=== PATIENT | male | born 1950 | race Caucasian/White ===

== ENCOUNTER → 2023-09-03 | Outpatient (CLI) | payer OTHER, SELFPAY ==
[2023-09-03 12:16] LABS: Absolute Lymphocyte Count 0.62 X10^3/uL (0.83-4.51); Basophil# 0.04 X10^3/uL; Basophil% 0.8 % (0-1); Eosinophils% 1.9 % (0-5); Hematocrit 46.2 % (40-54); Hemoglobin 14.2 g/dL (13.0-16.5); Lymphocyte # 0.62 X10^3/ul (0.83-4.51); Mean Corp Hgb Conc 30.7 g/dL (32-36); Mean Corpuscular Hgb 28.2 pg (27.0-32.0); Mean Corpuscular Volume 91.8 fL (80-94); Mean Platelet Vol. 9.8 fl (6.2-12.0); Monocyte# 0.45 X10^3/uL; Monocyte% 8.7 % (0-10); NRBC Flagged by Analyzer 0 % (0-5); Neutrophil # 3.95 X10^3/uL (2.7-7.7); Neutrophil % 76.4 % (47-70); Platelet Count 219 K/mm3 (150-450); RBC Distribution Width CV 13.3 % (11.6-14.6); RBC Distribution Width SD 44.9 fl (35.1-43.9); Red Blood Count 5.03 M/mm3 (4.6-6.2); White Blood Count 5.2 K/mm3 (4.4-11.0)
[2023-09-03 12:35] LABS: Bacteria 0 SEEN /hpf (None Seen); Mucous, Urine 0 SEEN /hpf (<or=2+); Red Blood Cells-Urine 0 SEEN /hpf (0-5); Squamous Epithelial Cells - UA 0 SEEN /hpf (0-5); White Blood Cells 0 SEEN /hpf (0-5)
[2023-09-03 12:40] LABS: AST(SGOT) 18 U/L (15-37); Alanine Aminotransfer ALT/SGPT 37 U/L (16-61); Albumin, Serum 3.6 g/dL (3.2-5.0); Alkaline Phosphatase 66 U/L (45-117); Anion Gap 6 (5-15); BUN 19 mg/dL (7-18); BUN/Creat Ratio 22.2 RATIO (10-20); CPK Total, Creatine Kinase 68 U/L (39-308); Calcium,Total 9.4 mg/dL (8.5-10.1); Chloride 103 mmol/L (98-107); Cholesterol 115 mg/dL (200); Creatinine, Serum 0.85 mg/dL (0.70-1.30); EST Glomerular Filtration Rate 94 mL/min (>60); Est Glom Filt Rate - Afr Amer 113 mL/min (>60); Ferritin 12 ng/mL (26-388); Globulin 3.7 g/dL (2.2-4.2); Glucose 136 mg/dL (74-106); High Density Lipoprotein 52 mg/dL; Magnesium 1.9 mg/dL (1.6-2.6); PSA,Total- Diagnostic 0.14 ng/mL (0.0-4.0); Potassium 3.7 mmol/L (3.5-5.1); Protein, Total 7.3 g/dL (6.4-8.2); Sodium Level 137 mmol/L (136-145); Triglycerides 155 mg/dL; Very Low Density Lipoprotein 31 mg/dL (5-40)
[2023-09-03 13:32] LABS: Hemoglobin A1c 6.7 % (3.8-5.6)
[2023-09-03 15:35] LABS: Color, Urine Yellow (Yellow); Glucose, Dipstick 1000 mg/dl (Normal); Ketone-Dipstick Negative (Negative); Leukocyte Esterase-Dipstick Negative /ul (Negative); Nitrite-Dipstick Negative (Negative); Occult Blood-Urine Negative /ul (Negative); Protein-Dipstick Negative (Negative); Urine Bilirubin Dipstick Negative (Negative); Urine Clarity Clear (Clear); Urine Urobilinogen Normal (Normal)
[2023-09-03 16:08] LABS: Microalbumin,Random Urine < 5.0 mg/L (NO RANGE EST.)
[2023-09-04 11:58] LABS: Iron 68 ug/dL (65-175); Iron Binding Capacity,Total 344 ug/dL (250-450); PERCENT IRON SATURATION 19.8 % (15.0-55.0)
== END | disposition home or self-care (01) ==
LOC: MFPLAB 10:28
PROVIDERS: PCP Family Medicine; Visit Provider Family Medicine
DX: R79.0 Abnormal level of blood mineral (principal); C61 Malignant neoplasm of prostate; E11.8 Type 2 diabetes mellitus with unspecified complications; M79.10 Myalgia, unspecified site
CPT/HCPCS: 36415; 80053; 80061; 81001; 82043; 82550; 82570; 82728; 83036; 83540; 83550; 83735; 84153; 85025

== ENCOUNTER → 2023-10-17 | Outpatient (CLI) | payer MEDICARE, SELFPAY ==
[2023-10-17 18:28] LABS: Ferritin 23 ng/mL (26-388)
== END | disposition home or self-care (01) ==
PROVIDERS: PCP Family Medicine; Visit Provider Family Medicine
DX: R79.0 Abnormal level of blood mineral (principal)
CPT/HCPCS: 36415; 82728

== ENCOUNTER → 2024-02-25 | Outpatient (CLI) | payer MEDICARE, SELFPAY ==
[2024-02-25 15:04] LABS: Absolute Lymphocyte Count 1.35 X10^3/uL (0.83-4.51); Absolute Neutrophil Count 4.5 X10^3/uL (2.0-7.7); Basophil# 0.05 X10^3/uL; Basophil% 0.7 % (0-1); Eosinophils% 1.5 % (0-5); Hematocrit 44.6 % (40-54); Hemoglobin 14.6 g/dL (13.0-16.5); Lymphocyte # 1.35 X10^3/ul (0.83-4.51); Lymphocyte % 20.2 % (19-41); Mean Corp Hgb Conc 32.7 g/dL (32-36); Mean Corpuscular Hgb 28.8 pg (27.0-32.0); Mean Platelet Vol. 10.4 fl (6.2-12.0); Monocyte# 0.66 X10^3/uL; Monocyte% 9.9 % (0-10); NRBC Flagged by Analyzer 0 % (0-5); Neutrophil # 4.49 X10^3/uL (2.7-7.7); Neutrophil % 67.4 % (47-70); Platelet Count 235 K/mm3 (150-450); RBC Distribution Width CV 13.6 % (11.6-14.6); RBC Distribution Width SD 43.4 fl (35.1-43.9); Red Blood Count 5.07 M/mm3 (4.6-6.2); White Blood Count 6.7 K/mm3 (4.4-11.0)
[2024-02-25 15:35] LABS: ALB/GLOB Ratio 0.9 RATIO (0.9-2.4); AST(SGOT) 14 U/L (15-37); Alanine Aminotransfer ALT/SGPT 30 U/L (16-61); Albumin, Serum 3.7 g/dL (3.2-5.0); Alkaline Phosphatase 85 U/L (45-117); Anion Gap 7 (5-15); BUN 24 mg/dL (7-18); BUN/Creat Ratio 24.5 RATIO (10-20); Calcium,Total 10.1 mg/dL (8.5-10.1); Chloride 102 mmol/L (98-107); Cholesterol 138 mg/dL (200); Creatinine, Serum 0.98 mg/dL (0.70-1.30); EST Glomerular Filtration Rate 80 mL/min (>60); Est Glom Filt Rate - Afr Amer 97 mL/min (>60); Ferritin 11 ng/mL (26-388); Globulin 4.2 g/dL (2.2-4.2); Glucose 142 mg/dL (74-106); High Density Lipoprotein 49 mg/dL; Iron 48 ug/dL (65-175); Iron Binding Capacity,Total 389 ug/dL (250-450); Potassium 4.3 mmol/L (3.5-5.1); Protein, Total 7.9 g/dL (6.4-8.2); Sodium Level 137 mmol/L (136-145); Triglycerides 183 mg/dL; Very Low Density Lipoprotein 37 mg/dL (5-40)
[2024-02-25 16:56] LABS: Hemoglobin A1c 6.8 % (3.8-5.6)
== END | disposition home or self-care (01) ==
LOC: MFPLAB 13:46
PROVIDERS: PCP Family Medicine; Referring Provider Family Medicine; Visit Provider Family Medicine
DX: E11.8 Type 2 diabetes mellitus with unspecified complications (principal); R79.0 Abnormal level of blood mineral
CPT/HCPCS: 36415; 80053; 80061; 82043; 82570; 82728; 83036; 83540; 83550; 85025

== ENCOUNTER → 2024-04-06 | Outpatient (CLI) | payer MEDICARE, SELFPAY ==
[2024-04-06 16:27] LABS: PSA,Total- Diagnostic 0.14 ng/mL (0.0-4.0)
== END | disposition home or self-care (01) ==
LOC: MFPLAB 12:18
PROVIDERS: PCP Family Medicine; Visit Provider Urology
DX: C61 Malignant neoplasm of prostate (principal)
CPT/HCPCS: 36415; 84153

== ENCOUNTER → 2024-06-22 | Outpatient (CLI) | payer MEDICARE, SELFPAY ==
[2024-06-22 12:51] LABS: Absolute Lymphocyte Count 1.21 X10^3/uL (0.83-4.51); Absolute Neutrophil Count 3.4 X10^3/uL (2.0-7.7); Basophil# 0.05 X10^3/uL; Basophil% 0.9 % (0-1); Eosinophil# 0.11 X10^3/uL; Eosinophils% 2.1 % (0-5); Hematocrit 41.4 % (40-54); Hemoglobin 13.1 g/dL (13.0-16.5); Lymphocyte # 1.21 X10^3/ul (0.83-4.51); Lymphocyte % 22.8 % (19-41); Mean Corp Hgb Conc 31.6 g/dL (32-36); Mean Corpuscular Hgb 27.8 pg (27.0-32.0); Mean Corpuscular Volume 87.9 fL (80-94); Monocyte# 0.51 X10^3/uL; Monocyte% 9.6 % (0-10); NRBC Flagged by Analyzer 0 % (0-5); Neutrophil # 3.42 X10^3/uL (2.7-7.7); Neutrophil % 64.4 % (47-70); Platelet Count 254 K/mm3 (150-450); RBC Distribution Width CV 13.9 % (11.6-14.6); RBC Distribution Width SD 44.7 fl (35.1-43.9); Red Blood Count 4.71 M/mm3 (4.6-6.2); White Blood Count 5.3 K/mm3 (4.4-11.0)
[2024-06-22 13:23] LABS: Ferritin 13 ng/mL (37-417); Iron 37 ug/dL (65-175); Iron Binding Capacity,Total 353 ug/dL (250-450); Iron Binding Capacity,Unsat 316 ug/dL (228-428); Vitamin B12 644 pg/mL (180-914)
== END | disposition home or self-care (01) ==
LOC: MFPLAB 11:04
PROVIDERS: PCP Family Medicine; Referring Provider Family Medicine; Visit Provider Family Medicine
DX: D50.9 Iron deficiency anemia, unspecified (principal)
CPT/HCPCS: 36415; 82607; 82728; 83540; 83550; 85025

== ENCOUNTER → 2024-10-05 | Outpatient (CLI) | payer MEDICARE, SELFPAY ==
[2024-10-05 18:20] LABS: Hematocrit 40.9 % (40-54); Hemoglobin 12.6 g/dL (13.0-16.5); Mean Corp Hgb Conc 30.8 g/dL (32-36); Mean Corpuscular Volume 84.7 fL (80-94); Mean Platelet Vol. 10.1 fl (6.2-12.0); Platelet Count 297 K/mm3 (150-450); RBC Distribution Width CV 15.0 % (11.6-14.6); RBC Distribution Width SD 45.9 fl (35.1-43.9); Red Blood Count 4.83 M/mm3 (4.6-6.2); White Blood Count 6.4 K/mm3 (4.4-11.0)
[2024-10-05 19:41] LABS: AST(SGOT) 18 U/L (<=37); Alanine Aminotransfer ALT/SGPT 22 U/L (<=46); Albumin, Serum 4.0 g/dL (3.4-4.8); Alkaline Phosphatase 78 U/L (40-129); Anion Gap 14 (5-15); BUN 22 mg/dL (4-19); BUN/Creat Ratio 24.1 RATIO (10-20); Calcium,Total 9.7 mg/dL (7.6-11.0); Carbon Dioxide 21.5 mmol/L (21.0-32.0); Chloride 101 mmol/L (98-108); Globulin 3.0 g/dL (2.2-4.2); Glucose 162 mg/dL (70-99); Potassium 4.2 mmol/L (3.3-5.1)
--- OUTSIDE RECORDS SUMMARY | 2024-10-05 22:24 | XMS RPT_ITS | CCD ---
Author Organization [facility] [employer] Care Team Providers [employer] Driver Name Role Phone Carolyn BRODY, Dr. Efraín Bains Primary Care Provider Anthony BRODY, Dr. Kavon Weiss Attending Provider 1( [phone] Carolyn BRODY, Dr. Efraín Bains Attending Provider Carloyn BRODY, Dr. Efraín Bains Referring Provider Efraín Leon Primary Care Unavailable Kavon Cruz Attending Unavailable Efraín Leon Referring Unavailable Efraín Leon Attending Unavailable Efraín Leon Primary Care Unavailable Efraín Leon Attending Unavailable Efraín Leon Primary Care Unavailable Efraín Leon Attending Unavailable Efraín Leon Primary Care Unavailable Efraín Leon Referring Unavailable Efraín Leon Attending Unavailable Efraín Leon Primary Care Unavailable Efraín Leon Primary Care Unavailable Efraín Leon Referring Unavailable Efraín Leon Attending Unavailable Problems Active Problems Problem Classification Problem Date Documented Da te Episodic/Chronic Cancer of prostate (1 source) Malignant neoplasm of prostate; Translations: [Malignant neoplasm of prostate] Onset: 04-21-2024 Chronic Deficiency and other anemia (2 sources) Iron deficiency anemia, unspecified; Translations: [Iron deficiency anemia, unspecified] Onset: 03-01-2024 Episodic Diabetes mellitus with complications (1 source) Type 2 diabetes mellitus with unspecified complications; Translations: [Type 2 diabetes mellitus with unspecified complications] Onset: 03-19-2024 Chronic Past or Other Problems Problem Classification Problem Date Documented Da te Episodic/Chronic Other screening for suspected conditions (not mental disorders or infectious disease) (1 source) Abnormal level of blood mineral; Translations: [Abnormal level of blood mineral] Onset: 10-29-2023 Episodic Results Test Name Value Interpretation Reference Range Facility Absolute lymphocyte countOrd ered By: Efraín Padillaalfred on 06-22-2024 Lymphocytes Auto (Unsp spec) [#/Vol] 1.21 10*3/uL 0.83-4.51 [facility] Absolute neutrophil countOrd ered By: Efraín Padillaalfred on 06-22-2024 Neutrophils (Bld) [#/Vol] 3.4 10*3/uL 2.0-7.7 [facility] Automated lymphocyte count a s percentage of total leukocytesOrdered By: Efraín Leon on 06-22-2024 Lymphocytes/100 WBC Auto (Unsp spec) 22.8 % 19-41 [facility] Basophil percentageOrdered B y: Efraín Leon on 06-22-2024 Basophils/100 WBC (Bld) 0.9 % 0-1 [facility] CBC W/Diff, Automatedon Absolute Lymph 1.21 X10 3/uL Normal 0.83-4.51 [facility] Comment on above: Performed By: #### L 501.9940, L501.5200, L500.4100, L502.0250, L100.0100, L503.6550, L501.3620, L501.9985, L500.4050 #### [facility] [address] [place], [address] (937) Absolute Neut 3.4 X10 3/uL Normal 2.0-7.7 [facility] Comment on above: Performed By: #### L 501.9940, L501.5200, L500.4100, L502.0250, L100.0100, L503.6550, L501.3620, L501.9985, L500.4050 #### [facility] [address] [place], [place], [id number] (845 Basophils/100 WBC (Bld) 0.9 % Normal 0-1 [facility] Comment on above: Performed By: #### L 501.9940, L501.5200, L500.4100, L502.0250, L100.0100, L503.6550, L501.3620, L501.9985, L500.4050 #### [facility] [address] [place], [address] Eosinophils/100 WBC (Bld) 2.1 % Normal 0-5 [facility] Comment on above: Performed By: #### L 501.9940, L501.5200, L500.4100, L502.0250, L100.0100, L503.6550, L501.3620, L501.9985, L500.4050 #### [facility] [address] [place], [address] Erythrocyte distribution width (RBC) [Ratio] 13.9 % Normal 11.6-14.6 [facility] Comment on above: Performed By: #### L 501.9940, L501.5200, L500.4100, L502.0250, L100.0100, L503.6550, L501.3620, L501.9985, L500.4050 #### [facility] [address] [place], [address] Hematocrit (Bld) [Volume fraction] 41.4 % Normal 40-54 [facility] Comment on above: Performed By: #### L 501.9940, L501.5200, L500.4100, L502.0250, L100.0100, L503.6550, L501.3620, L501.9985, L500.4050 #### [facility] [address] [place], [address] Hemoglobin (Bld) [Mass/Vol] 13.1 g/dL Normal 13.0-16.5 [facility] Comment on above: Performed By: #### L 501.9940, L501.5200, L500.4100, L502.0250, L100.0100, L503.6550, L501.3620, L501.9985, L500.4050 #### [facility] [address] [place], [address] IG% 0.200 Normal 0.0-0.9 [facility] Comment on above: Result Comment: IG% - Immature Granulocytes (promyelocytes, myelocytes and metamyelocytes) > 1% indicates that a LEFT SHIFT is Present. Performed By: #### L 501.9940, L501.5200, L500.4100, L502.0250, L100.0100, L503.6550, L501.3620, L501.9985, L500.4050 #### [facility] [address] [place], [address] Lymphocytes/100 WBC (Bld) 22.8 % Normal 19-41 [facility] Comment on above: Performed By: #### L 501.9940, L501.5200, L500.4100, L502.0250, L100.0100, L503.6550, L501.3620, L501.9985, L500.4050 #### [facility] [address] [place], [address] MCH (RBC) [Entitic mass] 27.8 pg Normal 27.0-32.0 [facility] Comment on above: Performed By: #### L 501.9940, L501.5200, L500.4100, L502.0250, L100.0100, L503.6550, L501.3620, L501.9985, L500.4050 #### [facility] [address] [place], [address] MCHC (RBC) [Mass/Vol] 31.6 g/dL Low 32-36 [facility] Comment on above: Performed By: #### L 501.9940, L501.5200, L500.4100, L502.0250, L100.0100, L503.6550, L501.3620, L501.9985, L500.4050 #### [facility] [address] [place], [address] MCV (RBC) [Entitic vol] 87.9 fL Normal 80-94 [facility] Comment on above: Performed By: #### L 501.9940, L501.5200, L500.4100, L502.0250, L100.0100, L503.6550, L501.3620, L501.9985, L500.4050 #### [facility] [address] [place], [address] Monocytes/100 WBC (Bld) 9.6 % Normal 0-10 [facility] Comment on above: Performed By: #### L 501.9940, L501.5200, L500.4100, L502.0250, L100.0100, L503.6550, L501.3620, L501.9985, L500.4050 #### [facility] [address] [place], [address] Neutrophils/100 WBC (Bld) 64.4 % Normal 47-70 [facility] Comment on above: Performed By: #### L 501.9940, L501.5200, L500.4100, L502.0250, L100.0100, L503.6550, L501.3620, L501.9985, L500.4050 #### [facility] [address] [place], [address] Nucleated RBC (Bld) [#/Vol] 0 10*3/uL Normal 0-5 [facility] Comment on above: Performed By: #### L 501.9940, L501.5200, L500.4100, L502.0250, L100.0100, L503.6550, L501.3620, L501.9985, L500.4050 #### [facility] [address] [place], [address] Platelet mean volume (Bld) [Entitic vol] 10.0 fL Normal 6.2-12.0 [facility] Comment on above: Performed By: #### L 501.9940, L501.5200, L500.4100, L502.0250, L100.0100, L503.6550, L501.3620, L501.9985, L500.4050 #### [facility] [address] [place], [address] Platelets (Bld) [#/Vol] 254 10*3/uL Normal 150-450 [facility] Comment on above: Performed By: #### L 501.9940, L501.5200, L500.4100, L502.0250, L100.0100, L503.6550, L501.3620, L501.9985, L500.4050 #### [facility] [address] [place], [address] RBC (Bld) [#/Vol] 4.71 10*6/uL Normal 4.6-6.2 [facility] Comment on above: Performed By: #### L 501.9940, L501.5200, L500.4100, L502.0250, L100.0100, L503.6550, L501.3620, L501.9985, L500.4050 #### [facility] [address] [place], [address] RDW SD 44.7 fl High 35.1-43.9 [facility] Comment on above: Performed By: #### L 501.9940, L501.5200, L500.4100, L502.0250, L100.0100, L503.6550, L501.3620, L501.9985, L500.4050 #### [facility] [address] [place], [address] WBC (Bld) [#/Vol] 5.3 10*3/uL Normal 4.4-11.0 [facility] Comment on above: Performed By: #### L 501.9940, L501.5200, L500.4100, L502.0250, L100.0100, L503.6550, L501.3620, L501.9985, L500.4050 #### [facility] [address] [place], [place], [id number] Eosinophil percentageOrdered By: Efraín Leon on 06-22-2024 Eosinophils/100 WBC (Bld) 2.1 % 0-5 [facility] Erythrocyte distribution wid th ratioOrdered By: Efraín Leon on 06-22-2024 Erythrocyte distribution width (RBC) [Ratio] 13.9 % 11.6-14.6 [facility] Erythrocyte distribution wid th standard deviationOrdered By: Efraín Leon on 06-22-2024 Erythrocyte distribution width (RBC) [Ratio] 44.7 fl High 35.1-43.9 [facility] Ferritinon 06-22-2024 Ferritin [Mass/Vol] 13 ng/mL Low 37-417 [facility] Comment on above: Performed By: #### L 501.9940, L501.5200, L500.4100, L502.0250, L100.0100, L503.6550, L501.3620, L501.9985, L500.4050 #### [facility] [address] [place], [place], [address] Hematocrit Auto (Bld) [Volum e fraction]Ordered By: Efraín Leon on 06-22-2024 Hematocrit (Bld) [Volume fraction] 41.4 % 40-54 [facility] Hemoglobin measurementOrdere d By: Efraín Leon on 06-22-2024 Hemoglobin (Bld) [Mass/Vol] 13.1 g/dL 13.0-16.5 [facility] Immature granulocytes/100 WB C Auto (Bld)Ordered By: Efraín Leon on 06-22-2024 Immature granulocytes/100 WBC (Bld) 0.200 % 0.0-0.9 [facility] Comment on above: IG% - Immature Granu locytes (promyelocytes, myelocytes and metamyelocytes) > 1% indicates that a LEFT SHIFT is Present. Iron measurement (mass/mass) Ordered By: Efraín Leon on 06-22-2024 Iron (Unsp spec) [Mass/Mass] 37 ug/dL Low 65-175 [facility] Iron+Iron Binding Capacityon 06-22-2024 Iron [Mass/Vol] 37 ug/dL Low 65-175 [facility] Comment on above: Performed By: #### L 501.9940, L501.5200, L500.4100, L502.0250, L100.0100, L503.6550, L501.3620, L501.9985, L500.4050 #### [facility] [address] [place], [address] IRON SATURATION 10.0 Normal 9-55 [facility] Comment on above: Performed By: #### L 501.9940, L501.5200, L500.4100, L502.0250, L100.0100, L503.6550, L501.3620, L501.9985, L500.4050 #### [facility] [address] [place], [address] TIBC 353 ug/dL Normal 250-450 [facility] Comment on above: Performed By: #### L 501.9940, L501.5200, L500.4100, L502.0250, L100.0100, L503.6550, L501.3620, L501.9985, L500.4050 #### [facility] [address] [place], [address] UIBC 316 ug/dL Normal 228-428 [facility] Comment on above: Performed By: #### L 501.9940, L501.5200, L500.4100, L502.0250, L100.0100, L503.6550, L501.3620, L501.9985, L500.4050 #### [facility] [address] [place], [address] MCV (mean corpuscular volume ) determinationOrdered By: Efraín Leon on 06-22-2024 MCV (RBC) [Entitic vol] 87.9 fL 80-94 [facility] Mean corpuscular hemoglobin (MCH) determinationOrdered By: Efraín Leon on 06-22-2024 MCH (RBC) [Entitic mass] 27.8 pg 27.0-32.0 [facility] Mean corpuscular hemoglobin concentration (MCHC) determinationOrdered By: Efraín Leon on 06-22-2024 MCHC (RBC) [Mass/Vol] 31.6 g/dL Low 32-36 [facility] Mean platelet volume determi nationOrdered By: Efraín Leon on 06-22-2024 Platelet mean volume (Bld) [Entitic vol] 10.0 fL 6.2-12.0 [facility] Monocyte percentageOrdered B y: Efraín Leon on 06-22-2024 Monocytes/100 WBC (Bld) 9.6 % 0-10 [facility] Neutrophil percentageOrdered By: Efraín Leon on 06-22-2024 Neutrophils/100 WBC (Bld) 64.4 % 47-70 [facility] No Panel InformationOrdered By: Efraín Leon on 06-22-2024 Unsaturated Iron Binding Capacity 316 ug/dL 228-428 [facility] Nucleated red blood cell per centageOrdered By: Efraín Leon on 06-22-2024 Nucleated RBC/100 WBC (Bld) [Ratio] 0 % 0-5 [facility] Platelet countOrdered By: Samina Leon on 06-22-2024 Platelets (Bld) [#/Vol] 254 10*3/uL 150-450 [facility] RBC Auto (Bld) [#/Vol]Ordere d By: Efraín Leon on 06-22-2024 RBC (Bld) [#/Vol] 4.71 10*6/uL 4.6-6.2 [facility] Serum or plasma ferritin gabriela surement (mass/volume)Ordered By: Efraín Leon on 06-22-2024 Ferritin [Mass/Vol] 13 ng/mL Low 37-417 [facility] Serum or plasma iron saturat ion measurement (mass fraction)Ordered By: Efraín Leon on 06-22-2024 Iron saturation [Mass fraction] 10.0 % 9-55 [facility] Vitamin B12on 06-22-2024 Cobalamin (Vitamin B12) [Mass/Vol] 644 pg/mL Normal 180-914 [facility] Comment on above: Performed By: #### L 501.9940, L501.5200, L500.4100, L502.0250, L100.0100, L503.6550, L501.3620, L501.9985, L500.4050 #### [facility] [address] [place], [address] Vitamin B12 ser/plasOrdered By: Efraín Leon on 06-22-2024 Cobalamin (Vitamin B12) [Mass/Vol] 644 pg/mL 180-914 [facility] White blood cell (WBC) count Ordered By: Efraín Leon on 06-22-2024 WBC (Bld) [#/Vol] 5.3 10*3/uL 4.4-11.0 [facility] PSA,Total- Diagnosticon 03-20 PSA, DIAGNOSTIC 0.14 ng/mL Normal 0.0-4.0 [facility] Comment on above: Result Comment: This test was performed using the TPSA assay method for the [employer] chemistry system. Values obtained with different assay methods cannot be used interchangably. When changing PSA assays in the course of monitoring a patient, additional sequential testing should be carried out to confirm baseline values. Performed By: #### L 501.9940, L501.5200, L500.4100, L502.0250, L100.0100, L503.6550, L501.3620, L501.9985, L500.4050 #### [facility] [address] [place], [address] CBC W/Diff, Automatedon - Absolute Lymph 1.35 X10 3/uL Normal 0.83-4.51 [facility] Comment on above: Order Comment: Order Date: 10/17/23 Order Info: 227-4 - KODY Performed By: #### L 503.6550 #### [facility] [address] [place], [address] Absolute Neut 4.5 X10 3/uL Normal 2.0-7.7 [facility] Comment on above: Order Comment: Order Date: 10/17/23 Order Info: 227-4 - KODY Performed By: #### L 503.6550 #### [facility] [address] [place], [address] Basophils/100 WBC (Bld) 0.7 % Normal 0-1 [facility] Comment on above: Order Comment: Order Date: 10/17/23 Order Info: 2275-4 - KODY Performed By: #### L 503.6550 #### [facility] [address] [place], [address] Eosinophils/100 WBC (Bld) 1.5 % Normal 0-5 [facility] Comment on above: Order Comment: Order Date: 10/17/23 Order Info: 4 - KODY Performed By: #### L 503.6550 #### [facility] [address] [place], [address] Erythrocyte distribution width (RBC) [Ratio] 13.6 % Normal 11.6-14.6 [facility] Comment on above: Order Comment: Order Date: 10/17/23 Order Info: 2275-4 - KODY Performed By: #### L 503.6550 #### [facility] [address] [place], [address] Hematocrit (Bld) [Volume fraction] 44.6 % Normal 40-54 [facility] Comment on above: Order Comment: Order Date: 10/17/23 Order Info: 227-4 - KODY Performed By: #### L 503.6550 #### [facility] [address] [place], [address] Hemoglobin (Bld) [Mass/Vol] 14.6 g/dL Normal 13.0-16.5 [facility] Comment on above: Order Comment: Order Date: 10/17/23 Order Info: 2275-05 - KODY Performed By: #### L 503.6550 #### [facility] [address] [place], [address] IG% 0.300 Normal 0.0-0.9 [facility] Comment on above: Order Comment: Order Date: 10/17/23 Order Info: 2275-05 - KODY Result Comment: IG% - Immature Granulocytes (promyelocytes, myelocytes and metamyelocytes) > 1% indicates that a LEFT SHIFT is Present. Performed By: #### L 503.6550 #### [facility] [address] [place], [address] Lymphocytes/100 WBC (Bld) 20.2 % Normal 19-41 [facility] Comment on above: Order Comment: Order Date: 10/17/23 Order Info: 2275-05 - KODY Performed By: #### L 503.6550 #### [facility] [address] [place], [address] MCH (RBC) [Entitic mass] 28.8 pg Normal 27.0-32.0 [facility] Comment on above: Order Comment: Order Date: 10/17/23 Order Info: 2275-05 - KODY Performed By: #### L 503.6550 #### [facility] [address] [place], [address] MCHC (RBC) [Mass/Vol] 32.7 g/dL Normal 32-36 [facility] Comment on above: Order Comment: Order Date: 10/17/23 Order Info: 2275-05 - KODY Performed By: #### L 503.6550 #### [facility] [address] [place], [address] MCV (RBC) [Entitic vol] 88.0 fL Normal 80-94 [facility] Comment on above: Order Comment: Order Date: 10/17/23 Order Info: 2275-4 - KODY Performed By: #### L 503.6550 #### [facility] [address] [place], [address] Monocytes/100 WBC (Bld) 9.9 % Normal 0-10 [facility] Comment on above: Order Comment: Order Date: 10/17/23 Order Info: 227-4 - KODY Performed By: #### L 503.6550 #### [facility] [address] [place], [address] Neutrophils/100 WBC (Bld) 67.4 % Normal 47-70 [facility] Comment on above: Order Comment: Order Date: 10/17/23 Order Info: 227-4 - KODY Performed By: #### L 503.6550 #### [facility] [address] [place], [address] Nucleated RBC (Bld) [#/Vol] 0 10*3/uL Normal 0-5 [facility] Comment on above: Order Comment: Order Date: 10/17/23 Order Info: 2275-4 - KODY Performed By: #### L 503.6550 #### [facility] [address] [place], [address] Platelet mean volume (Bld) [Entitic vol] 10.4 fL Normal 6.2-12.0 [facility] Comment on above: Order Comment: Order Date: 10/17/23 Order Info: 2275-4 - KODY Performed By: #### L 503.6550 #### [facility] [address] [place], [address] Platelets (Bld) [#/Vol] 235 10*3/uL Normal 150-450 [facility] Comment on above: Order Comment: Order Date: 10/17/23 Order Info: 227-4 - KODY Performed By: #### L 503.6550 #### [facility] [address] [place], [address] RBC (Bld) [#/Vol] 5.07 10*6/uL Normal 4.6-6.2 [facility] Comment on above: Order Comment: Order Date: 10/17/23 Order Info: 2275-4 - KODY Performed By: #### L 503.6550 #### [facility] [address] [place], [address] RDW SD 43.4 fl Normal 35.1-43.9 [facility] Comment on above: Order Comment: Order Date: 10/17/23 Order Info: 2275-4 - KODY Performed By: #### L 503.6550 #### [facility] [address] [place], [address] WBC (Bld) [#/Vol] 6.7 10*3/uL Normal 4.4-11.0 [facility] Comment on above: Order Comment: Order Date: 10/17/23 Order Info: 4 - KODY Performed By: #### L 503.6550 #### [facility] [address] [place], [address] Comprehensive Metabolic Prof ilon 02-25-2024 Albumin [Mass/Vol] 3.7 g/dL Normal 3.2-5.0 [facility] Comment on above: Order Comment: Order Date: 10/17/23 Order Info: 2275-4 - KODY Performed By: #### L 503.6550 #### [facility] [address] [place], [address] Albumin/Globulin [Mass ratio] 0.9 {ratio} Normal 0.9-2.4 [facility] Comment on above: Order Comment: Order Date: 10/17/23 Order Info: 227-4 - KODY Performed By: #### L 503.6550 #### [facility] [address] [place], [address] ALK P 85 U/L Normal 45-117 [facility] Comment on above: Order Comment: Order Date: 10/17/23 Order Info: 2276-4 - KODY Performed By: #### L 503.6550 #### [facility] [address] [place], [address] ALT [Catalytic activity/Vol] 30 U/L Normal 16-61 [facility] Comment on above: Order Comment: Order Date: 10/17/23 Order Info: 2276-4 - KODY Performed By: #### L 503.6550 #### [facility] [address] [place], [address] AST [Catalytic activity/Vol] 14 U/L Low 15-37 [facility] Comment on above: Order Comment: Order Date: 10/17/23 Order Info: 2276-4 - KODY Performed By: #### L 503.6550 #### [facility] [address] [place], [address] Bilirubin [Mass/Vol] 0.40 mg/dL Normal 0.20-1.00 [facility] Comment on above: Order Comment: Order Date: 10/17/23 Order Info: 227-4 - KODY Result Comment: For patients on eltrombopag therapy, use of Dimension Rigby TBIL is not recommended. Performed By: #### L 503.6550 #### [facility] [address] [place], [address] BUN/CRE 24.5 RATIO High 10-20 [facility] Comment on above: Order Comment: Order Date: 10/17/23 Order Info: 2276-4 - KODY Performed By: #### L 503.6550 #### [facility] [address] [place], [address] CA,Total 10.1 mg/dL Normal 8.5-10.1 [facility] Comment on above: Order Comment: Order Date: 10/17/23 Order Info: 2276-4 - KODY Performed By: #### L 503.6550 #### [facility] [address] [place], [address] Chloride [Moles/Vol] 102 mmol/L Normal 98-107 [facility] Comment on above: Order Comment: Order Date: 10/17/23 Order Info: 2275-05 - KODY Performed By: #### L 503.6550 #### [facility] [address] [place], [address] CO2 [Moles/Vol] 28.0 mmol/L Normal 21.0-32.0 [facility] Comment on above: Order Comment: Order Date: 10/17/23 Order Info: 2275-05 - KODY Performed By: #### L 503.6550 #### [facility] [address] [place], [address] Creatinine [Mass/Vol] 0.98 mg/dL Normal 0.70-1.30 [facility] Comment on above: Order Comment: Order Date: 10/17/23 Order Info: 2275-05 - KODY Result Comment: The validity of the calculated GFR GFRAA in patients over 70 years has not been determined. Clinical correlation is essential. Performed By: #### L 503.6550 #### [facility] [address] [place], [address] EST GFR - AA 97 mL/min Normal >60 [facility] Comment on above: Order Comment: Order Date: 10/17/23 Order Info: 2275-05 - KODY Result Comment: Afri can Kenyan GFR Calc Performed By: #### L 503.6550 #### [facility] [address] [place], [address] GAP 7 Normal 5-15 [facility] Comment on above: Order Comment: Order Date: 10/17/23 Order Info: 2275-05 - KODY Performed By: #### L 503.6550 #### [facility] [address] [place], [address] GFR/1.73 sq M.predicted among non-blacks MDRD (S/P/Bld) [Vol rate/Area] 80 mL/min/{1.73_m2} Normal >60 [facility] Comment on above: Order Comment: Order Date: 10/17/23 Order Info: 2275- - KODY Result Comment: Non- GFR Calc Performed By: #### L 503.6550 #### [facility] [address] [place], [address] Globulin (S) [Mass/Vol] 4.2 g/dL Normal 2.2-4.2 [facility] Comment on above: Order Comment: Order Date: 10/17/23 Order Info: 2275-05 - KODY Performed By: #### L 503.6550 #### [facility] [address] [place], [address] Glucose [Mass/Vol] 142 mg/dL High 74-106 [facility] Comment on above: Order Comment: Order Date: 10/17/23 Order Info: 2275-05 - KODY Result Comment: Fast ing Glucose result greater than or equal to 126 mg/dL suggests DIABETES MELLITUS per A.D.A. criteria. Performed By: #### L 503.6550 #### [facility] [address] [place], [address] Potassium [Moles/Vol] 4.3 mmol/L Normal 3.5-5.1 [facility] Comment on above: Order Comment: Order Date: 10/17/23 Order Info: 2275-05 - KODY Performed By: #### L 503.6550 #### [facility] [address] [place], [address] Sodium [Moles/Vol] 137 mmol/L Normal 136-145 [facility] Comment on above: Order Comment: Order Date: 10/17/23 Order Info: 2275-05 - KODY Performed By: #### L 503.6550 #### [facility] [address] [place], [address] T PROT 7.9 g/dL Normal 6.4-8.2 [facility] Comment on above: Order Comment: Order Date: 10/17/23 Order Info: 2276-4 - KODY Performed By: #### L 503.6550 #### [facility] [address] [place], [address] Urea nitrogen [Mass/Vol] 24 mg/dL High 7-18 [facility] Comment on above: Order Comment: Order Date: 10/17/23 Order Info: 2276-4 - KODY Performed By: #### L 503.6550 #### [facility] [address] [place], [address] Ferritinon 02-25-2024 Ferritin [Mass/Vol] 11 ng/mL Low 26-388 [facility] Comment on above: Order Comment: Order Date: 10/17/23 Order Info: 227-4 - KODY Performed By: #### L 503.6550 #### [facility] [address] [place], [address] Hemoglobin A1con 02-25-2024 HbA1c (Bld) [Mass fraction] 6.8 % High 3.8-5.6 [facility] Comment on above: Order Comment: Order Date: 10/17/23 Order Info: 2276-4 - KODY Result Comment: Norm al < 5.7 % Prediabetic 5.7 - 6.4 % Diabetic >or= 6.5 % Please note range changes. Performed By: #### L 503.6550 #### [facility] [address] [place], [address] Ironon 02-25-2024 Iron [Mass/Vol] 48 ug/dL Low 65-175 [facility] Comment on above: Order Comment: Order Date: 10/17/23 Order Info: 2276-4 - KODY Performed By: #### L 503.6550 #### [facility] [address] [place], [place], [address] Iron Binding Capacity,Totalo n 02-25-2024 TIBC 389 ug/dL Normal 250-450 [facility] Comment on above: Order Comment: Order Date: 02/25/24 Order Info: 0786-1 - CMP Order Info: 74061-0 - LIPID Order Info: 2498-4 - FE Order Info: 2275-05 - KODY Performed By: #### L 503.6075 #### [facility] [address] [place], [place], [address] Lipid Profileon 02-25-2024 Cholesterol [Mass/Vol] 138 mg/dL Normal 200 [facility] Comment on above: Order Comment: Order Date: 10/17/23 Order Info: 2275-05 - KODY Result Comment: <200 mg/dL Desirable 200-240 mg/dL Borderline >240 mg/dL High Risk Performed By: #### L 503.6550 #### [facility] [address] [place], [place], [address] Cholesterol in HDL [Mass/Vol] 49 mg/dL Normal [facility] Comment on above: Order Comment: Order Date: 10/17/23 Order Info: 2275-05 - KODY Result Comment: The drugs N-Acetylcysteine and Metamizole may falsely depress this assay. Reference Range HDL <40 mg/dL Low HDL Cholesterol HDL >or= 60 mg/dL High HDL Cholesterol Performed By: #### L 503.6550 #### [facility] [address] [place], [address] Cholesterol in LDL [Mass/Vol] 52 mg/dL Normal 0-130 [facility] Comment on above: Order Comment: Order Date: 10/17/23 Order Info: 2275-05 - KODY Performed By: #### L 503.6550 #### [facility] [address] [place], [address] Cholesterol in VLDL [Mass/Vol] 37 mg/dL Normal 5-40 [facility] Comment on above: Order Comment: Order Date: 10/17/23 Order Info: 2276-4 - KODY Performed By: #### L 503.6550 #### [facility] [address] [place], [place], [address] Triglyceride [Mass/Vol] 183 mg/dL Normal [facility] Comment on above: Order Comment: Order Date: 10/17/23 Order Info: 2276-4 - KODY Result Comment: The drugs N-Acetylcysteine and Metamizole may falsely depress this assay. Serum Triglycerides Reference Interval Normal <150 mg/dL Borderline high 150 - 199 mg/dL High 200 - 499 mg/dL Very High > or = 500 mg/dL Performed By: #### L 503.6550 #### [facility] [address] [place], [place], [address] Microalb:Creat Ratio,Random URon 02-25-2024 Creatinine [Mass/Vol] 66.40 mg/dL Normal NO RANGE EST. [facility] Comment on above: Order Comment: Order Date: 10/17/23 Order Info: 227-4 - KODY Performed By: #### L 503.6550 #### [facility] [address] [place], [place], [address] MALB:CRE 9.0 mg/g CRE Normal <30 mg/g CRE [facility] Comment on above: Order Comment: Order Date: 10/17/23 Order Info: 2276-4 - KODY Performed By: #### L 503.6550 #### [facility] [address] [place], [address] MICROALBUMIN,UR 6.0 mg/L Normal NO RANGE EST. [facility] Comment on above: Order Comment: Order Date: 10/17/23 Order Info: 2276-4 - KODY Performed By: #### L 503.6550 #### [facility] [address] [place], [address] Ferritinon 10-17-2023 Ferritin [Mass/Vol] 23 ng/mL Low 26-388 [facility] Comment on above: Order Comment: Order Date: 10/17/23 Order Info: 22707-21 - KODY Performed By: #### L 503.6550 #### [facility] [address] [place], [address] Iron+Iron Binding Capacityon 09-04-2023 Iron [Mass/Vol] 68 ug/dL Normal 65-175 [facility] Comment on above: Order Comment: Order Date: 10/17/23 Order Info: 2275-05 - KODY Performed By: #### L 503.6550 #### [facility] [address] [place], [address] IRON SATURATION 19.8 Normal 15.0-55.0 [facility] Comment on above: Order Comment: Order Date: 10/17/23 Order Info: 22707-21 - KODY Performed By: #### L 503.6550 #### [facility] [address] [place], [address] TIBC 344 ug/dL Normal 250-450 [facility] Comment on above: Order Comment: Order Date: 10/17/23 Order Info: 22707-21 - KODY Performed By: #### L 503.6550 #### [facility] [address] [place], [address] CBC W/Diff, Automatedon 08-17 Absolute Lymph 0.62 X10 3/uL Low 0.83-4.51 [facility] Comment on above: Order Comment: Order Date: 09/03/23 Order Info: 0184-1 - CBCD Performed By: #### L 501.9940, L501.5200, L500.4100, L502.0250, L100.0100, L503.6550, L501.3620, L501.9985, L500.4050 #### [facility] [address] [place], [address] Absolute Neut 4.0 X10 3/uL Normal 2.0-7.7 [facility] Comment on above: Order Comment: Order Date: 09/03/23 Order Info: 0184-1 - CBCD Performed By: #### L 501.9940, L501.5200, L500.4100, L502.0250, L100.0100, L503.6550, L501.3620, L501.9985, L500.4050 #### [facility] [address] [place], [address] Basophils/100 WBC (Bld) 0.8 % Normal 0-1 [facility] Comment on above: Order Comment: Order Date: 09/03/23 Order Info: 0184- - CBCD Performed By: #### L 501.9940, L501.5200, L500.4100, L502.0250, L100.0100, L503.6550, L501.3620, L501.9985, L500.4050 #### [facility] [place], [place], [phone] ([address]) Eosinophils/100 WBC (Bld) 1.9 % Normal 0-5 [facility] Comment on above: Order Comment: Order Date: 09/03/23 Order Info: 0184-1 - CBCD Performed By: #### L 501.9940, L501.5200, L500.4100, L502.0250, L100.0100, L503.6550, L501.3620, L501.9985, L500.4050 #### [facility] [address] [place], [place], [phone] (858) Erythrocyte distribution width (RBC) [Ratio] 13.3 % Normal 11.6-14.6 [facility] Comment on above: Order Comment: Order Date: 09/03/23 Order Info: 0184-1 - CBCD Performed By: #### L 501.9940, L501.5200, L500.4100, L502.0250, L100.0100, L503.6550, L501.3620, L501.9985, L500.4050 #### [facility] [address] [place], [address] Hematocrit (Bld) [Volume fraction] 46.2 % Normal 40-54 [facility] Comment on above: Order Comment: Order Date: 09/03/23 Order Info: 0184-1 - CBCD Performed By: #### L 501.9940, L501.5200, L500.4100, L502.0250, L100.0100, L503.6550, L501.3620, L501.9985, L500.4050 #### [facility] [address] [place], [address] Hemoglobin (Bld) [Mass/Vol] 14.2 g/dL Normal 13.0-16.5 [facility] Comment on above: Order Comment: Order Date: 09/03/23 Order Info: 0184-1 - CBCD Performed By: #### L 501.9940, L501.5200, L500.4100, L502.0250, L100.0100, L503.6550, L501.3620, L501.9985, L500.4050 #### [facility] [address] [place], [address] IG% 0.200 Normal 0.0-0.9 [facility] Comment on above: Order Comment: Order Date: 09/03/23 Order Info: 0184-1 - CBCD Result Comment: IG% - Immature Granulocytes (promyelocytes, myelocytes and metamyelocytes) > 1% indicates that a LEFT SHIFT is Present. Performed By: #### L 501.9940, L501.5200, L500.4100, L502.0250, L100.0100, L503.6550, L501.3620, L501.9985, L500.4050 #### [facility] [address] [place], [address] Lymphocytes/100 WBC (Bld) 12.0 % Low 19-41 [facility] Comment on above: Order Comment: Order Date: 09/03/23 Order Info: 0184-1 - CBCD Performed By: #### L 501.9940, L501.5200, L500.4100, L502.0250, L100.0100, L503.6550, L501.3620, L501.9985, L500.4050 #### [facility] [address] [place], [address] MCH (RBC) [Entitic mass] 28.2 pg Normal 27.0-32.0 [facility] Comment on above: Order Comment: Order Date: 09/03/23 Order Info: 0184- - CBCD Performed By: #### L 501.9940, L501.5200, L500.4100, L502.0250, L100.0100, L503.6550, L501.3620, L501.9985, L500.4050 #### [facility] [address] [place], [address] MCHC (RBC) [Mass/Vol] 30.7 g/dL Low 32-36 [facility] Comment on above: Order Comment: Order Date: 09/03/23 Order Info: 0184- - CBCD Performed By: #### L 501.9940, L501.5200, L500.4100, L502.0250, L100.0100, L503.6550, L501.3620, L501.9985, L500.4050 #### [facility] [address] [place], [address] MCV (RBC) [Entitic vol] 91.8 fL Normal 80-94 [facility] Comment on above: Order Comment: Order Date: 09/03/23 Order Info: 0184- - CBCD Performed By: #### L 501.9940, L501.5200, L500.4100, L502.0250, L100.0100, L503.6550, L501.3620, L501.9985, L500.4050 #### [facility] [address] [place], [address] Monocytes/100 WBC (Bld) 8.7 % Normal 0-10 [facility] Comment on above: Order Comment: Order Date: 09/03/23 Order Info: 0184-1 - CBCD Performed By: #### L 501.9940, L501.5200, L500.4100, L502.0250, L100.0100, L503.6550, L501.3620, L501.9985, L500.4050 #### [facility] [address] [place], [address] Neutrophils/100 WBC (Bld) 76.4 % High 47-70 [facility] Comment on above: Order Comment: Order Date: 09/03/23 Order Info: 0184-1 - CBCD Performed By: #### L 501.9940, L501.5200, L500.4100, L502.0250, L100.0100, L503.6550, L501.3620, L501.9985, L500.4050 #### [facility] [address] [place], [address] Nucleated RBC (Bld) [#/Vol] 0 10*3/uL Normal 0-5 [facility] Comment on above: Order Comment: Order Date: 09/03/23 Order Info: 0184-1 - CBCD Performed By: #### L 501.9940, L501.5200, L500.4100, L502.0250, L100.0100, L503.6550, L501.3620, L501.9985, L500.4050 #### [facility] [address] [place], [address] Platelet mean volume (Bld) [Entitic vol] 9.8 fL Normal 6.2-12.0 [facility] Comment on above: Order Comment: Order Date: 09/03/23 Order Info: 0184-1 - CBCD Performed By: #### L 501.9940, L501.5200, L500.4100, L502.0250, L100.0100, L503.6550, L501.3620, L501.9985, L500.4050 #### [facility] [address] [place], [address] Platelets (Bld) [#/Vol] 219 10*3/uL Normal 150-450 [facility] Comment on above: Order Comment: Order Date: 09/03/23 Order Info: 0184-1 - CBCD Performed By: #### L 501.9940, L501.5200, L500.4100, L502.0250, L100.0100, L503.6550, L501.3620, L501.9985, L500.4050 #### [facility] [address] [place], [address] RBC (Bld) [#/Vol] 5.03 10*6/uL Normal 4.6-6.2 [facility] Comment on above: Order Comment: Order Date: 09/03/23 Order Info: 0184-1 - CBCD Performed By: #### L 501.9940, L501.5200, L500.4100, L502.0250, L100.0100, L503.6550, L501.3620, L501.9985, L500.4050 #### [facility] [address] [place], [address] RDW SD 44.9 fl High 35.1-43.9 [facility] Comment on above: Order Comment: Order Date: 09/03/23 Order Info: 0184-1 - CBCD Performed By: #### L 501.9940, L501.5200, L500.4100, L502.0250, L100.0100, L503.6550, L501.3620, L501.9985, L500.4050 #### [facility] [address] [place], [address] WBC (Bld) [#/Vol] 5.2 10*3/uL Normal 4.4-11.0 [facility] Comment on above: Order Comment: Order Date: 09/03/23 Order Info: 0184-1 - CBCD Performed By: #### L 501.9940, L501.5200, L500.4100, L502.0250, L100.0100, L503.6550, L501.3620, L501.9985, L500.4050 #### [facility] [address] [place], [address] CPK Total, Creatine Kinaseon 09-03-2023 CPK TOTAL 68 U/L Normal 39-308 [facility] Comment on above: Order Comment: Order Date: 09/03/23 Order Info: 0786-1 - CMP Order Info: 47366-5 - LIPID Order Info: 2156-6 - CPK Order Info: 96098-0 - MG Order Info: 07 - PSAD Order Info: 2275-05 - KODY Performed By: #### L 501.9940, L501.5200, L500.4100, L502.0250, L100.0100, L503.6550, L501.3620, L501.9985, L500.4050 #### [facility] [address] [place], [address] Comprehensive Metabolic Prof ilon 09-03-2023 Albumin [Mass/Vol] 3.6 g/dL Normal 3.2-5.0 [facility] Comment on above: Order Comment: Order Date: 09/03/23 Order Info: 0786-1 - CMP Order Info: 68925-6 - LIPID Order Info: 2157-6 - CPK Order Info: 90226-0 - MG Order Info: 782-02 - PSAD Order Info: 4 - KODY Performed By: #### L 501.9940, L501.5200, L500.4100, L502.0250, L100.0100, L503.6550, L501.3620, L501.9985, L500.4050 #### [facility] [address] [place], [place], [address] Albumin/Globulin [Mass ratio] 1.0 {ratio} Normal 0.9-2.4 [facility] Comment on above: Order Comment: Order Date: 09/03/23 Order Info: 785- - CMP Order Info: 65315-2 - LIPID Order Info: 2157-6 - CPK Order Info: 84949-4 - MG Order Info: 782-02 - PSAD Order Info: 2275-05 - KODY Performed By: #### L 501.9940, L501.5200, L500.4100, L502.0250, L100.0100, L503.6550, L501.3620, L501.9985, L500.4050 #### [facility] [address] [place], [place], [id number] ALK P 66 U/L Normal 45-117 [facility] Comment on above: Order Comment: Order Date: 09/03/23 Order Info: 785-02 - CMP Order Info: - LIPID Order Info: 7-6 - CPK Order Info: 89700-0 - MG Order Info: 782-02 - PSAD Order Info: 2275-05 - KODY Performed By: #### L 501.9940, L501.5200, L500.4100, L502.0250, L100.0100, L503.6550, L501.3620, L501.9985, L500.4050 #### [facility] [address] [place], [place], [address] ALT [Catalytic activity/Vol] 37 U/L Normal 16-61 [facility] Comment on above: Order Comment: Order Date: 09/03/23 Order Info: 86-1 - CMP Order Info: 37392-6 - LIPID Order Info: 2157-6 - CPK Order Info: 80854-6 - MG Order Info: 782-02 - PSAD Order Info: 4 - KODY Performed By: #### L 501.9940, L501.5200, L500.4100, L502.0250, L100.0100, L503.6550, L501.3620, L501.9985, L500.4050 #### [facility] [address] [place], [address] AST [Catalytic activity/Vol] 18 U/L Normal 15-37 [facility] Comment on above: Order Comment: Order Date: 09/03/23 Order Info: 0786- - CMP Order Info: 51182-1 - LIPID Order Info: 76 - CPK Order Info: 30917-6 - MG Order Info: 782-02 - PSAD Order Info: 2275-05 - KODY Performed By: #### L 501.9940, L501.5200, L500.4100, L502.0250, L100.0100, L503.6550, L501.3620, L501.9985, L500.4050 #### [facility] [address] [place], [place], [address] Bilirubin [Mass/Vol] 0.50 mg/dL Normal 0.20-1.00 [facility] Comment on above: Order Comment: Order Date: 09/03/23 Order Info: 0786- - CMP Order Info: 51757-4 - LIPID Order Info: 7-6 - CPK Order Info: 19614-5 - MG Order Info: 782-02 - PSAD Order Info: 2275-05 - KODY Result Comment: For patients on eltrombopag therapy, use of Dimension Rigby TBIL is not recommended. Performed By: #### L 501.9940, L501.5200, L500.4100, L502.0250, L100.0100, L503.6550, L501.3620, L501.9985, L500.4050 #### [facility] [address] [place], [address] BUN/CRE 22.2 RATIO High 10-20 [facility] Comment on above: Order Comment: Order Date: 09/03/23 Order Info: 785-02 - CMP Order Info: - LIPID Order Info: 7-6 - CPK Order Info: 15868-6 - MG Order Info: 782-02 - PSAD Order Info: 4 - KODY Performed By: #### L 501.9940, L501.5200, L500.4100, L502.0250, L100.0100, L503.6550, L501.3620, L501.9985, L500.4050 #### [facility] [address] [place], [place], [address] CA,Total 9.4 mg/dL Normal 8.5-10.1 [facility] Comment on above: Order Comment: Order Date: 09/03/23 Order Info: 785-02 - CMP Order Info: - LIPID Order Info: 6 - CPK Order Info: 91219-9 - MG Order Info: 782-02 - PSAD Order Info: 2275-05 - KODY Performed By: #### L 501.9940, L501.5200, L500.4100, L502.0250, L100.0100, L503.6550, L501.3620, L501.9985, L500.4050 #### [facility] [address] [place], [place], [phone] [phone] [Moles/Vol] 103 mmol/L Normal 98-107 [facility] Comment on above: Order Comment: Order Date: 09/03/23 Order Info: 785-02 - CMP Order Info: - LIPID Order Info: 7-6 - CPK Order Info: 17092-5 - MG Order Info: 782-02 - PSAD Order Info: 4 - KODY Performed By: #### L 501.9940, L501.5200, L500.4100, L502.0250, L100.0100, L503.6550, L501.3620, L501.9985, L500.4050 #### [facility] [address] [place], [place], [address] CO2 [Moles/Vol] 28.0 mmol/L Normal 21.0-32.0 [facility] Comment on above: Order Comment: Order Date: 09/03/23 Order Info: 785- - CMP Order Info: [id number] - LIPID Order Info: 76 - CPK Order Info: 68802-2 - MG Order Info: 782-02 - PSAD Order Info: 2275-05 - KODY Performed By: #### L 501.9940, L501.5200, L500.4100, L502.0250, L100.0100, L503.6550, L501.3620, L501.9985, L500.4050 #### [facility] [address] [place], [place], [phone] (360) Creatinine [Mass/Vol] 0.85 mg/dL Normal 0.70-1.30 [facility] Comment on above: Order Comment: Order Date: 09/03/23 Order Info: 785-02 - CMP Order Info: - LIPID Order Info: 6 - CPK Order Info: 11113-0 - MG Order Info: 782-02 - PSAD Order Info: 2275-05 - KODY Result Comment: The validity of the calculated GFR GFRAA in patients over 70 years has not been determined. Clinical correlation is essential. Performed By: #### L 501.9940, L501.5200, L500.4100, L502.0250, L100.0100, L503.6550, L501.3620, L501.9985, L500.4050 #### [facility] [address] [place], [place], [address] EST GFR - AA 113 mL/min Normal >60 [facility] Comment on above: Order Comment: Order Date: 09/03/23 Order Info: 785-02 - CMP Order Info: 21302-4 - LIPID Order Info: 76 - CPK Order Info: 75181-0 - MG Order Info: 782-02 - PSAD Order Info: 2275-05 - KODY Result Comment: Afri can [place] GFR Calc Performed By: #### L 501.9940, L501.5200, L500.4100, L502.0250, L100.0100, L503.6550, L501.3620, L501.9985, L500.4050 #### [facility] [address] [place], [place], [address] GAP 6 Normal 5-15 [facility] Comment on above: Order Comment: Order Date: 09/03/23 Order Info: 785-02 - CMP Order Info: - LIPID Order Info: 2156-07 - CPK Order Info: 48126-6 - MG Order Info: 782-02 - PSAD Order Info: 2275-05 KODY Performed By: #### L 501.9940, L501.5200, L500.4100, L502.0250, L100.0100, L503.6550, L501.3620, L501.9985, L500.4050 #### [facility] [address] [place], [place], [phone] (982) GFR/1.73 sq M.predicted among non-blacks MDRD (S/P/Bld) [Vol rate/Area] 94 mL/min/{1.73_m2} Normal >60 [facility] Comment on above: Order Comment: Order Date: 09/03/23 Order Info: 785-02 - CMP Order Info: - LIPID Order Info: 2156-07 - CPK Order Info: 77906-0 - MG Order Info: 782-02 - PSAD Order Info: 2275-05 - KODY Result Comment: Non- GFR Calc Performed By: #### L 501.9940, L501.5200, L500.4100, L502.0250, L100.0100, L503.6550, L501.3620, L501.9985, L500.4050 #### [facility] [address] [place], [address] (460) Globulin (S) [Mass/Vol] 3.7 g/dL Normal 2.2-4.2 [facility] Comment on above: Order Comment: Order Date: 09/03/23 Order Info: 785-02 - CMP Order Info: - LIPID Order Info: 7-6 - CPK Order Info: 61830-5 - MG Order Info: 782-02 - PSAD Order Info: 2275-05 - KODY Performed By: #### L 501.9940, L501.5200, L500.4100, L502.0250, L100.0100, L503.6550, L501.3620, L501.9985, L500.4050 #### [facility] [address] [place], [place], [id number] Glucose [Mass/Vol] 136 mg/dL High 74-106 [facility] Comment on above: Order Comment: Order Date: 09/03/23 Order Info: 785-02 - CMP Order Info: - LIPID Order Info: 6 - CPK Order Info: 11649-9 - MG Order Info: 782-02 - PSAD Order Info: 2275-05 - KODY Result Comment: Fast ing Glucose result greater than or equal to 126 mg/dL suggests DIABETES MELLITUS per A.D.A. criteria. Performed By: #### L 501.9940, L501.5200, L500.4100, L502.0250, L100.0100, L503.6550, L501.3620, L501.9985, L500.4050 #### [facility] [address] [place], [address] Potassium [Moles/Vol] 3.7 mmol/L Normal 3.5-5.1 [facility] Comment on above: Order Comment: Order Date: 09/03/23 Order Info: 785-02 - CMP Order Info: - LIPID Order Info: 6 - CPK Order Info: 71718-9 - MG Order Info: 782-02 - PSAD Order Info: 2275-05 - KODY Performed By: #### L 501.9940, L501.5200, L500.4100, L502.0250, L100.0100, L503.6550, L501.3620, L501.9985, L500.4050 #### [facility] [address] [place], [place], [phone] (722) Sodium [Moles/Vol] 137 mmol/L Normal 136-145 [facility] Comment on above: Order Comment: Order Date: 09/03/23 Order Info: 785- - CMP Order Info: 64887-6 - LIPID Order Info: 2157-6 - CPK Order Info: 84639-1 - MG Order Info: 782-02 - PSAD Order Info: 4 - KODY Performed By: #### L 501.9940, L501.5200, L500.4100, L502.0250, L100.0100, L503.6550, L501.3620, L501.9985, L500.4050 #### [facility] [address] [place], [address] T PROT 7.3 g/dL Normal 6.4-8.2 [facility] Comment on above: Order Comment: Order Date: 09/03/23 Order Info: 785-02 - CMP Order Info: 00713-1 - LIPID Order Info: 7-6 - CPK Order Info: 81942-0 - MG Order Info: 782-02 - PSAD Order Info: 4 - KODY Performed By: #### L 501.9940, L501.5200, L500.4100, L502.0250, L100.0100, L503.6550, L501.3620, L501.9985, L500.4050 #### [facility] [address] [place], [address] Urea nitrogen [Mass/Vol] 19 mg/dL High 7-18 [facility] Comment on above: Order Comment: Order Date: 09/03/23 Order Info: 785- - CMP Order Info: [id number] - LIPID Order Info: 2157-6 - CPK Order Info: 36453-2 - MG Order Info: 07-1 - PSAD Order Info: 2275-05 - KODY Performed By: #### L 501.9940, L501.5200, L500.4100, L502.0250, L100.0100, L503.6550, L501.3620, L501.9985, L500.4050 #### [facility] [address] [place], [place], [id number] Ferritinon 09-03-2023 Ferritin [Mass/Vol] 12 ng/mL Low 26-388 [facility] Comment on above: Order Comment: Order Date: 09/03/23 Order Info: 0786-1 - CMP Order Info: 65930-6 - LIPID Order Info: 6 - CPK Order Info: 97041-6 - MG Order Info: 782-02 - PSAD Order Info: 2275-05 - KODY Performed By: #### L 501.9940, L501.5200, L500.4100, L502.0250, L100.0100, L503.6550, L501.3620, L501.9985, L500.4050 #### [facility] [address] [place], [address] Hemoglobin A1con 09-03-2023 HbA1c (Bld) [Mass fraction] 6.7 % High 3.8-5.6 [facility] Comment on above: Order Comment: Order Date: 09/03/23 Order Info: 4548-4 - A1C Result Comment: Norm al < 5.7 % Prediabetic 5.7 - 6.4 % Diabetic >or= 6.5 % Please note range changes. Performed By: #### L 501.9940, L501.5200, L500.4100, L502.0250, L100.0100, L503.6550, L501.3620, L501.9985, L500.4050 #### [facility] [address] [place], [address] Lipid Profileon 09-03-2023 Cholesterol [Mass/Vol] 115 mg/dL Normal 200 [facility] Comment on above: Order Comment: Order Date: 09/03/23 Order Info: 785- - CMP Order Info: 78802-7 - LIPID Order Info: 2157-6 - CPK Order Info: 22135-5 - MG Order Info: 782-02 - PSAD Order Info: 2275-05 - KODY Result Comment: <200 mg/dL Desirable 200-240 mg/dL Borderline >240 mg/dL High Risk Performed By: #### L 501.9940, L501.5200, L500.4100, L502.0250, L100.0100, L503.6550, L501.3620, L501.9985, L500.4050 #### [facility] [address] [place], [place], [id number] Cholesterol in HDL [Mass/Vol] 52 mg/dL Normal [facility] [facility] Comment on above: Order Comment: Order Date: 09/03/23 Order Info: 785-02 - CMP Order Info: - LIPID Order Info: 6 - CPK Order Info: [id number] - MG Order Info: 782-02 - PSAD Order Info: 2275-05 - Result Comment: The drugs N-Acetylcysteine and Metamizole may falsely depress this assay. Reference Range HDL <40 mg/dL Low HDL Cholesterol HDL >or= 60 mg/dL High HDL Cholesterol Performed By: #### L 501.9940, L501.5200, L500.4100, L502.0250, L100.0100, L503.6550, L501.3620, L501.9985, L500.4050 #### [facility] [address] [place], [place], [id number] [phone] Cholesterol in LDL [Mass/Vol] 32 mg/dL Normal 0-130 [facility] Comment on above: Order Comment: Order Date: 09/03/23 Order Info: 785-02 - CMP Order Info: - LIPID Order Info: [id number] - CPK Order Info: [id number] - MG Order Info: 782-02 - PSAD Order Info: 2275-05 - KODY Performed By: #### L 501.9940, L501.5200, L500.4100, L502.0250, L100.0100, L503.6550, L501.3620, L501.9985, L500.4050 #### [facility] [address] [place], [address] Cholesterol in VLDL [Mass/Vol] 31 mg/dL Normal 5-40 [facility] Comment on above: Order Comment: Order Date: 09/03/23 Order Info: 785-02 - CMP Order Info: - LIPID Order Info: 6 - CPK Order Info: [id number] - MG Order Info: 782-02 - PSAD Order Info: 2275-05 - KODY Performed By: #### L 501.9940, L501.5200, L500.4100, L502.0250, L100.0100, L503.6550, L501.3620, L501.9985, L500.4050 #### [facility] [address] [place], [address] Triglyceride [Mass/Vol] 155 mg/dL Normal [facility] Comment on above: Order Comment: Order Date: 09/03/23 Order Info: 785-02 - CMP Order Info: [id number] - LIPID Order Info: 76 - CPK Order Info: 40060-8 - MG Order Info: 782-02 - PSAD Order Info: 2275-05 - KODY Result Comment: The drugs N-Acetylcysteine and Metamizole may falsely depress this assay. Serum Triglycerides Reference Interval Normal <150 mg/dL Borderline high 150 - 199 mg/dL High 200 - 499 mg/dL Very High > or = 500 mg/dL Performed By: #### L 501.9940, L501.5200, L500.4100, L502.0250, L100.0100, L503.6550, L501.3620, L501.9985, L500.4050 #### [facility] [address] [place], [address] Magnesiumon 09-03-2023 Magnesium [Mass/Vol] 1.9 mg/dL Normal 1.6-2.6 [facility] Comment on above: Order Comment: Order Date: 09/03/23 Order Info: 0786-1 - CMP Order Info: 87625-5 - LIPID Order Info: 2157-6 - CPK Order Info: 91252-1 - MG Order Info: 0783-1 - PSAD Order Info: 2275-05 - KODY Performed By: #### L 501.9940, L501.5200, L500.4100, L502.0250, L100.0100, L503.6550, L501.3620, L501.9985, L500.4050 #### [facility] [address] [place], [address] Microalb:Creat Ratio,Random URon 09-03-2023 Creatinine [Mass/Vol] 31.70 mg/dL Normal NO RANGE EST. [facility] Comment on above: Order Comment: Order Date: 10/17/23 Order Info: 2275-05 - KODY Performed By: #### L 503.6550 #### [facility] [address] [place], [address] MALB:CRE TNP Normal <30 mg/g CRE [facility] Comment on above: Order Comment: Order Date: 10/17/23 Order Info: 2275-05 - KODY Performed By: #### L 503.6550 #### [facility] [address] [place], [address] MICROALBUMIN,UR < 5.0 Normal NO RANGE EST. [facility] Comment on above: Order Comment: Order Date: 10/17/23 Order Info: 2275-05 - KODY Performed By: #### L 503.6550 #### [facility] [address] [place], [address] PSA,Total- Diagnosticon 08-17 PSA, DIAGNOSTIC 0.14 ng/mL Normal 0.0-4.0 [facility] Comment on above: Order Comment: Order Date: 09/03/23 Order Info: 0786-1 - CMP Order Info: [id number] - LIPID Order Info: 2157-6 - CPK Order Info: 47943-7 - MG Order Info: 0783-1 - PSAD Order Info: 2275-05 - KODY Result Comment: This test was performed using the TPSA assay method for the [employer] chemistry system. Values obtained with different assay methods cannot be used interchangably. When changing PSA assays in the course of monitoring a patient, additional sequential testing should be carried out to confirm baseline values. Performed By: #### L 501.9940, L501.5200, L500.4100, L502.0250, L100.0100, L503.6550, L501.3620, L501.9985, L500.4050 #### [facility] [address] [place], [address] Urinalysis, Completeon 09-02 BACTERIA 0 SEEN Normal None Seen [facility] Comment on above: Order Comment: Order Date: 10/17/23 Order Info: 2275-05 - KODY Performed By: #### L 503.6550 #### [facility] [address] [place], [address] EPI,SQUAMOUS 0 SEEN Normal 0-5 [facility] Comment on above: Order Comment: Order Date: 10/17/23 Order Info: 2275-05 - KODY Performed By: #### L 503.6550 #### [facility] [address] [place], [address] Mucus Ql (Urine sed) 0 SEEN Normal [facility] Comment on above: Order Comment: Order Date: 10/17/23 Order Info: 2275-05 - KODY Performed By: #### L 503.6550 #### [facility] [address] [place], [address] RBC 0 SEEN Normal 0-5 [facility] Comment on above: Order Comment: Order Date: 10/17/23 Order Info: 2276-4 - KODY Performed By: #### L 503.6550 #### [facility] [address] [place], [address] WBC 0 SEEN Normal 0-5 [facility] Comment on above: Order Comment: Order Date: 10/17/23 Order Info: 2276-4 - KODY Performed By: #### L 503.6550 #### [facility] [address] [place], [address] Encounters Encounter Date Encounter Type Care Provider Facility Start: 06-22-2024 End: 06-22-[address] Efraín Leon MD Work Phone: [facility] Work Phone: Start: 06-22-2024 End: 06-22-[address] Efraín Leon MD -Laboratory, [facility] Start: 06-22-2024 End: 06-22-2024 ambulatory Efraín Leon Facility:[facility] Start: 04-06-2024 End: 04-06-[address] Kavon Cruz MD -Laboratory, [facility] Start: 04-06-2024 End: 04-06-2024 ambulatory Efraín Leon Facility:[facility] Start: 03-01-2024 ambulatory Efraín Leon Facilit y:[facility] Start: 02-25-2024 End: 02-25-2024 ambulatory Efraín Leon Facility:[facility] Start: 10-17-2023 End: 10-17-2023 ambulatory Efraín Leon Facility:[facility] Start: 09-03-2023 End: 09-03-2023 ambulatory Efraín Herson Leon Facility:[facility] Procedures Date Procedure Procedure Detail Performing Clinician Start: 06-22-2024 Total iron binding c apacity measurement Dr. Efraín Leon MD Work Phone: Start: 04-06-2024 Assay of prostate sp ecific antigen total Dr. Efraín Leon MD Work Phone: Comment on above: This test was perfor med using the TPSA assay method for [employer] system. Values obtained with differentassay methods cannot be used interchangably.When changing PSA assays in the course of monitoring apatient, additional sequential testing should be carriedout to confirm baseline values. Payers Date Payer Category Payer Private Health Insurance [id number] 2023 Private Health Insurance [id number] 2023 Self-pay Unknown [id number] 2.16.8 [id number] Unknown [id number] 2.16.8 [id number] Unknown [id number] 2.16.8 [id number] Unknown [id number] 2.16.8 [id number] Unknown [id number] 2.16.8 [id number] Unknown [id number] 2.16.8 [id number] Social History Date Type Detail Facility Tobacco smoking stat [facility] Unknown if ever smoked [facility] Work Phone: Start: 1950 Sex Assigned At Male [facility] Evaluation note Note Date & Type Note Facility Evaluation note No assessment information availa ble [facility] Work Phone: Reason for referral (narrative) Note Date & Type Note Facility Reason for referral (narrative) No reason for referral information available [facility] Work Phone: Summary Purpose Family History No Family History Records Found Advance Directives No Advanced Directives Records Found Additional Source Comments Care Teams (unrecognized sec tion and content) Team Status: Active Member Role Status Dates Dr. Efraín Leon MD Primary Care Provider Active Team Status: Inactive Member Role Status Dates Dr. Efraín Leon MD Primary Care Provider Active Start: April 06, 2024 End: April 06, 2024 Dr. Kavon Cruz MD Attending Provider Active Start: April 06, 2024 End: April 06, 2024 Team Status: Inactive Member Role Status Dates Dr. Efraín Leon MD Primary Care Provider Active Start: June 22, 2024 End: June 22, 2024 Dr. Efraín Leon MD Attending Provider Active Start: June 22, 2024 End: June 22, 2024 Dr. Efraín Leon MD Referring Provider Active Start: June 22, 2024 End: June 22, 2024 Goals (unrecognized section and content) Goals may be documented in a n alternate section (unrecognized sect ion and content) No Status Records Found INFORMATION SOURCE (unrecogn ized section and content) DATE CREATED AUTHOR 06/29/2024 [facility] FOR RECORDS PERTAINING TO PATIENTS WHO ARE OR HAVE BEEN ENROLLED IN A CHEMICAL DEPENDENCY/SUBSTANCEABUSE PROGRAM, SOME INFORMATION MAY BE OMITTED. This clinical summary was aggregated from multiple sources. Caution should be exercised in using it in the provision of clinical care. This summary normalizes information from multiple sources, and as a consequence, information in this document may materially change the coding, format and clinical context of patient data. In addition, data may be omitted in some cases. CLINICAL DECISIONS SHOULD BE BASED ON THE PRIMARY CLINICAL RECORDS. [employer] provides no warranty or guarantee of the accuracy or completeness of information in this document.
[2024-10-06 11:23] LABS: Ferritin 11 ng/mL (37-417); Iron 44 ug/dL (65-175); Iron Binding Capacity,Total 368 ug/dL (250-450); Iron Binding Capacity,Unsat 324 ug/dL (228-428); Vitamin B12 649 pg/mL (180-914)
[2024-10-07 13:08] LABS: ANTINUCLEAR ANTIBODIES DIRECT Negative (Negative)
[2024-10-11 19:07] LABS: VITAMIN B6 10.5 ug/L (3.4-65.2); Vitamin B1, Thiamine 122.0 nmol/L (66.5-200.0)
== END | disposition home or self-care (01) ==
LOC: MFPLAB 15:10
PROVIDERS: PCP Family Medicine; Referring Provider Family Medicine; Visit Provider Family Medicine
DX: D64.9 Anemia, unspecified (principal)
CPT/HCPCS: 36415; 80053; 82607; 82728; 83540; 83550; 84207; 84425; 85027; 86038

== ENCOUNTER 2024-11-02 07:19 | Day surgery (SDC) | payer MEDICARE, SELFPAY ==
--- OUTSIDE RECORDS SUMMARY | 2024-11-02 07:30 | XMS RPT_ITS | CCD ---
Author Organization [facility] Care Team Providers Care Bricklayer'S Assistant Name Role Phone Carolyn BRODY, Dr. Efraín Bains Primary Care Provider Anthony BRODY, Dr. Kavon Weiss Attending Provider Carolyn BRODY, Dr. Efraín Bains Attending Provider Carolyn BRODY, Dr. Efraín Bains Referring Provider [phone] Carolyn BRODY, Dr. Efraín Bains Primary Care Provider [phone] Darlene BRODY, Dr. Sarkar Attending Provider Efraín Leon Primary Care Unavailable Efraín Leon Attending Unavailable Efraín Leon Referring Unavailable Mello Colon Attending Unavailable Efraín Leon Referring Unavailable Efraín Leon Primary Care Unavailable Efraín Leon Attending Unavailable Efraín Leon Referring Unavailable Efraín Leon Primary Care Unavailable Efraín Leon Attending Unavailable Efraín Leon Referring Unavailable Efraín Leon Primary Care Unavailable Mello Colon Attending Unavailable Efraín Leon Referring Unavailable Efraín Leon Primary Care Unavailable Efraín Leon Attending Unavailable Efraín Leon Referring Unavailable Efraín Leon Primary Care Unavailable Kavon Cruz Attending Unavailable Efraín Leon Primary Care Unavailable Medications Current Medications Medication Drug Class(es) Dates Sig (Normalized) Sig (Original) amLODIPine 10 mg oral tablet (1 source) Dihydropyridine Calcium Channel Jevon Start: 10-19-2024 take 1 tablet by mouth once daily Amlodipine 10 mg tablet Active 10 mg PO daily October 19, 2024 12:00am Blood-Glucose Sensor (Freestyle Amparo 3 Plus Sensor) device (1 source) Start: 10-19-2024 Blood-Glucose Sensor (Freestyle Amparo 3 Plus Sensor) device Active NMA .ROUTE every 3 months October 19, 2024 12:00am As directed empagliflozin 25 mg oral tablet (1 source) Sodium-Glucose Cotransporter 2 Inhibitor Start: 10-19-2024 take 1 tablet by mouth once daily Empagliflozin (Jardiance) 25 mg tablet Active 25 mg PO daily October 19, 2024 12:00am gabapentin 100 mg oral capsule (1 source) Anti-epileptic Agent Start: 10-19-2024 take 1 capsule by mouth at bedtime Gabapentin 100 mg capsule Active 100 mg PO AT BEDTIME October 19, 2024 12:00am lisinopril 20 mg oral tablet (1 source) Angiotensin Converting Enzyme Inhibitor Start: 10-19-2024 take 1 tablet by mouth once daily Lisinopril 20 mg tablet Active 20 mg PO daily October 19, 2024 12:00am metFORMIN hydrochloride 500 mg oral tablet (1 source) Biguanide Start: 10-19-2024 take 2 tablets by mouth twice daily Metformin 500 mg tablet Active 1000 mg PO TWICE A DAY October 19, 2024 12:00am pantoprazole 40 mg delayed release oral tablet (1 source) Proton Pump Inhibitor Start: 10-19-2024 take 1 tablet by mouth once daily in the morning Pantoprazole 40 mg tablet,delayed release (DR/EC) Active 40 mg PO EVERY MORNING October 19, 2024 12:00am Problems Active Problems Problem Classification Problem Date Documented Da te Episodic/Chronic Cancer of prostate (1 source) Malignant neoplasm of prostate; Translations: [Malignant neoplasm of prostate] Onset: Chronic Deficiency and other anemia (1 source) Anemia; Translations: [Anemia, unspecified] 10-19-2024 Episodic Deficiency and other anemia (1 source) Anemia, unspecified; Translations: [Anemia, unspecified] Onset: 5 Episodic Diabetes mellitus with complications (1 source) Type 2 diabetes mellitus with unspecified complications; Translations: [Type 2 diabetes mellitus with unspecified complications] Onset: Chronic Diabetes mellitus without complication (1 source) Diabetes mellitus; Translations: [Type 2 diabetes mellitus without complications] 10-19-2024 Chronic Disorders of lipid metabolism (1 source) Hypercholesterolemia; Translations: [Pure hypercholesterolemia, unspecified] 10-19-2024 Chronic Esophageal disorders (1 source) Gastroesophageal reflux disease; Translations: [Gastro-esophageal reflux disease without esophagitis] 10-19-2024 Chronic Essential hypertension (1 source) Hypertensive disorder; Translations: [Essential (primary) hypertension] 10-19-2024 Chronic Other and unspecified benign neoplasm (1 source) Polyp of colon; Translations: [Polyp of colon] 10-19-2024 Episodic Other connective tissue disease (1 source) Pain in lower limb; Translations: [Pain in leg, unspecified] 10-19-2024 Episodic Other gastrointestinal disorders (1 source) Constipation; Translations: [Constipation, unspecified] 10-19-2024 Episodic Past or Other Problems Problem Classification Problem Date Documented Da te Episodic/Chronic Deficiency and other anemia (2 sources) Iron deficiency anemia, unspecified; Translations: [Iron deficiency anemia, unspecified] Onset: 03-01-2024 Episodic Results Test Name Value Interpretation Reference Range Facility Surgery Visit Reporton 10-19 Surgery Visit Report [facility] [address] [place] [address]. [address] [place] [address] OFFICE VISIT Date of Service: 10/19/24 MR#: [id number] Acct: [id number] Name: XAVIER DODGE Rep #: [id number] : 1950 Provider: Dr. Mello ibarra MD Age/Sex: 74/M Location: [facility] Status: Signed Intake Vital Signs 10/19/24 14:14 Height 5 ft 9 in Weight: 266 lb BMI 39.2 BP 119/75 Blood Pressure Location Rt brachial Position Sitting Respiration 16 Intake Visit Reasons: POSSIBLE ENDO/COLONOSCOPY-A nemia Chief Complaint: anemia Real Estate Rep Required: No Is patient in pain?: No Allergies No Known Allergies Allergy (Unverified 10/19/24 14:15) Medications ???Medication ???Instructions ???Recorded ???Confirmed ???Type amlodipine 10 mg tablet 10 mg PO QDAY 10/19/24 10/19/24 Hi story blood-glucose sensor (FreeStyle #1 ea 10/19/24 10/19/24 History Amparo 3 Plus Sensor device) empagliflozin 25 mg tablet 25 mg PO QDAY 10/19/24 10/19/24 Hi story (Jardiance) gabapentin 100 mg capsule 100 mg PO QHS 10/19/24 10/19/24 Hi story lisinopril 20 mg tablet 20 mg PO QDAY 10/19/24 10/19/24 Hi story metformin 500 mg tablet 1,000 mg PO BID 10/19/24 10/19/24 History pantoprazole 40 mg tablet,delayed 40 mg PO QAM 10/19/24 10/19/24 Hi story release Have you fallen in the past year?: No PFSH Medical History (Updated 10/19/24 @ 14:13 by Olivia Perez) Colon polyps Acid reflux Constipation Leg pain Anemia HTN (hypertension) High cholesterol Diabetes Surgical History (Updated 10/19/24 @ 14:13 by Olivia Perez) S/P prostatectomy S/P bilateral inguinal hernia repair Family History (Updated 10/19/24 @ 14:14 by Olivia Perez) Grandmother Diabetes Father Heart disease Daughter Thyroid disorder Social History (Updated 10/19/24 @ 14:14 by Olivia Perez) Smoking Status: Former smoker alcohol intake: current alcohol intake frequency: 0-2 drinks per day HPI HPI HPI: Patient is a 74-year-old male who is here for anemia. He does not note any blood in his stool. He is not having any abdominal pain. He says that he did have a history of radiation for prostate cancer. Patient reports that his last colonoscopy and EGD were about 5 years ago. He denies family history of colon cancer. ROS General General: No weight change, appetite, fatigue, colon cancer, breast cancer or weakness HEENT HEENT: No difficulty swallowing, eye injury, eye surgery, swollen glands or hoarseness Endo Endocrine: Yes diabetes mellitus; No thyroid disease, thyroid cancer, Hair loss, heat intolerance or cold intolerance Skin Skin: No rash or changing moles Breast Breast: No left breast lump, right breast lump, nipple discharge, breast pain, abnormal mammogram, abnormal US or breast enlargement Musc Musculoskeletal: No back problems, arthritis, rheumatoid arthritis, gout or joint pain Cardio Cardiovascular: Yes high blood pressure; No murmur, pacemaker, heart disease, atrial fibrillation, heart attack, heart stent, palpitations, shortness of breath with exertion or chest pain Psych Psychiatric: No depression, anxiety or hearing voices Resp Respiratory: Yes shortness of breath, Yes sleep apnea, No cough, No COPD, No asthma, No emphysema and No wheezing Gastro Gastrointestinal: No abdominal pain, No nausea or vomiting, No diarrhea, Yes constipation, No blood in stool, Yes acid reflux, No hemorrhoids, No ulcers, No gallbladder problem and No black,tarry stools Catalino Hematologic: No blood thinners, No blood disorders, No bleeding, Yes anemia and No blood clots Neuro Neurologic: No system reviewed and no additional complaints, except as documented, No as per HPI, No abnormal gait, No abnormal hearing, No abnormal movements, No abnormal speech, No behavioral changes, No burning sensations, No confusion, No convulsions, No disequilibrium, No dizziness, No localized weakness, No frequent falls, No headache(s), No lack of coordination, No loss of vision, No memory loss, Yes numbness, No other visual disturbances, No radicular pain, No restless legs, No sensory deficit, No syncope, Yes tingling, No tremor(s), No weakness and No other Exam Const General: cooperative Orientation: alert and oriented x3 HENMT Head: normal to inspection Neck Neck: normal visual inspection and full ROM Chest Chest palpation inspection: normal inspection of the chest Resp Effort Inspection: normal respiratory effort Auscultation: clear to auscultation bilaterally Cardio Rate: regular rate Rhythm: regular rhythm GI Inspection: non-distended Palpation: soft and nontender Skin General: no rashes or lesions noted Neuro General: patient alert and patient oriented x3 Extrem General: full ROM Psych Appearance: (more content not included)... Normal [facility] L3300.8200on 10-11-2024 VITAMIN B6 10.5 ug/L Normal 3.4-65.2 [facility] Comment on above: Order Comment: Order Date: 02/25/24 Order Info: 0184-1 - CBCD Result Comment: Defi ciency: <3.4 Marginal: 3.4 - 5.1 Adequate: >5.1 Performed By: #### L 503.1150, L500.4050, L100.0100, L502.0250, L501.9985, L500.4100, L503.6150 #### [facility] [place], [address] Vitamin B1, Thiamineon 10-11 VIT B1 THIAMINE 122.0 nmol/L Normal 66.5-200.0 [facility] Comment on above: Order Comment: Order Date: 02/25/24 Order Info: 0184-1 - CBCD Result Comment: Perf ormed at: [facility] [id number] [place] Folder: Dominik Lamb MD, Phone: [phone] Performed By: #### L 503.6550, L500.4050, L100.0100, L502.0250, L501.9985, L500.4100, L503.6150 #### [facility] [address] [place], [address] ANTINUCLEAR ANTIBODIES DIREC Ton 10-07-2024 BETTY,DIRECT Negative Normal Negative [facility] Comment on above: Order Comment: Order Date: 02/25/24 Order Info: [id number] - CMP Order Info: [id number] - LIPID Order Info: [id number] - FE Order Info: 2276-4 - KODY Result Comment: Perf ormed at: [facility] [address] [id number] [place] Folder: Rikki Jane PhD, Phone: [phone] Performed By: #### L 503.6550, L500.4050, L100.0100, L502.0250, L501.9985, L500.4100, L503.6150 #### [facility] [address] [place], [address] Ferritinon 10-06-2024 Ferritin [Mass/Vol] 11 ng/mL Low 37-[address] [facility] Comment on above: Order Comment: Order Date: 02/25/24 Order Info: 0184-1 - CBCD Performed By: #### L 503.6550, L500.4050, L100.0100, L502.0250, L501.9985, L500.4100, L503.6150 #### [facility] [address] [place], [place], [id number] Iron+Iron Binding Capacityon 10-06-2024 Iron [Mass/Vol] 44 ug/dL Low 65-175 [facility] Comment on above: Order Comment: Order Date: 02/25/24 Order Info: 0184-1 - CBCD Performed By: #### L 503.6550, L500.4050, L100.0100, L502.0250, L501.9985, L500.4100, L503.6150 #### [facility] [address] [place], [address] IRON SATURATION 12.0 Normal 9-55 [facility] Comment on above: Order Comment: Order Date: 02/25/24 Order Info: 0184-1 - CBCD Performed By: #### L 503.6550, L500.4050, L100.0100, L502.0250, L501.9985, L500.4100, L503.6150 #### [facility] [address] [place], [address] TIBC 368 ug/dL Normal 250-450 [facility] Comment on above: Order Comment: Order Date: 02/25/24 Order Info: 0184-1 - CBCD Performed By: #### L 503.6550, L500.4050, L100.0100, L502.0250, L501.9985, L500.4100, L503.6150 #### [facility] [address] [place], [place], [address] UIBC 324 ug/dL Normal 228-428 [facility] Comment on above: Order Comment: Order Date: 02/25/24 Order Info: 0184-1 - CBCD Performed By: #### L 503.6550, L500.4050, L100.0100, L502.0250, L501.9985, L500.4100, L503.6150 #### [facility] [address] [place], [place], [address] Vitamin B12on 10-06-2024 Cobalamin (Vitamin B12) [Mass/Vol] 649 pg/mL Normal 180-914 [facility] Comment on above: Order Comment: Order Date: 02/25/24 Order Info: 0184-1 - CBCD Performed By: #### L 503.6550, L500.4050, L100.0100, L502.0250, L501.9985, L500.4100, L503.6150 #### [facility] [address] [place], [place], [id number] Anion gap in Serum or Plasma Ordered By: Efraín Leon on 10-05-2024 Anion gap [Moles/Vol] 14 mmol/L 5-15 [facility] BUN/creatinine ratioOrdered By: Efraín Leon on 10-05-2024 Urea nitrogen/Creatinine [Mass ratio] 24.1 mg/mg High 10- [facility] Bilirubin, totalOrdered By: Efraín Leon on 10-05-2024 Bilirubin [Mass/Vol] 0.27 mg/dL 0.00-1.30 [facility] CBC-Complete Blood Cnt No Di ffon 10-05-2024 Erythrocyte distribution width (RBC) [Ratio] 15.0 % High 11.6-14.6 [facility] Comment on above: Order Comment: Order Date: 02/25/24 Order Info: 0184-1 - CBCD Performed By: #### L 503.6550, L500.4050, L100.0100, L502.0250, L501.9985, L500.4100, L503.6150 #### [facility] [address] [place], [place], [id number] Hematocrit (Bld) [Volume fraction] 40.9 % Normal 40-54 [facility] Comment on above: Order Comment: Order Date: 02/25/24 Order Info: 0184-1 - CBCD Performed By: #### L 503.6550, L500.4050, L100.0100, L502.0250, L501.9985, L500.4100, L503.6150 #### [facility] [address] [place], [place], [id number] Hemoglobin (Bld) [Mass/Vol] 12.6 g/dL Low 13.0-16.5 [facility] Comment on above: Order Comment: Order Date: 02/25/24 Order Info: 0184- - CBCD Performed By: #### L 503.6550, L500.4050, L100.0100, L502.0250, L501.9985, L500.4100, L503.6150 #### [facility] [address] [place], [address] MCH (RBC) [Entitic mass] 26.1 pg Low 27.0-32.0 [facility] Comment on above: Order Comment: Order Date: 02/25/24 Order Info: 0184 - CBCD Performed By: #### L 503.6550, L500.4050, L100.0100, L502.0250, L501.9985, L500.4100, L503.6150 #### [facility] [address] [place], [address] MCHC (RBC) [Mass/Vol] 30.8 g/dL Low 32-36 [facility] Comment on above: Order Comment: Order Date: 02/25/24 Order Info: 0184-1 - CBCD Performed By: #### L 503.6550, L500.4050, L100.0100, L502.0250, L501.9985, L500.4100, L503.6150 #### [facility] [address] [place], [address] MCV (RBC) [Entitic vol] 84.7 fL Normal 80-94 [facility] Comment on above: Order Comment: Order Date: 02/25/24 Order Info: 0184-1 - CBCD Performed By: #### L 503.6550, L500.4050, L100.0100, L502.0250, L501.9985, L500.4100, L503.6150 #### [facility] [address] [place], [address] Platelet mean volume (Bld) [Entitic vol] 10.1 fL Normal 6.2-12.0 [facility] Comment on above: Order Comment: Order Date: 02/25/24 Order Info: 0184-1 - CBCD Performed By: #### L 503.6550, L500.4050, L100.0100, L502.0250, L501.9985, L500.4100, L503.6150 #### [facility] [address] [place], [address] Platelets (Bld) [#/Vol] 297 10*3/uL Normal 150-450 [facility] Comment on above: Order Comment: Order Date: 02/25/24 Order Info: 0184- - CBCD Performed By: #### L 503.6550, L500.4050, L100.0100, L502.0250, L501.9985, L500.4100, L503.6150 #### [facility] [address] [place], [place], [id number] RBC (Bld) [#/Vol] 4.83 10*6/uL Normal 4.6-6.[address] [facility] Comment on above: Order Comment: Order Date: 02/25/24 Order Info: 0184-1 - CBCD Performed By: #### L 503.6550, L500.4050, L100.0100, L502.0250, L501.9985, L500.4100, L503.6150 #### [facility] [address] [place], [address] RDW SD 45.9 fl High 35.1-43.9 [facility] Comment on above: Order Comment: Order Date: 02/25/24 Order Info: 0184-1 - CBCD Performed By: #### L 503.6550, L500.4050, L100.0100, L502.0250, L501.9985, L500.4100, L503.6150 #### [facility] [address] [place], [place], [id number] WBC (Bld) [#/Vol] 6.4 10*3/uL Normal 4.4-11.0 [facility] Comment on above: Order Comment: Order Date: 02/25/24 Order Info: 018- - CBCD Performed By: #### L 503.6550, L500.4050, L100.0100, L502.0250, L501.9985, L500.4100, L503.6150 #### [facility] [address] [place], [place], [id number] Carbon dioxide, total [Moles /volume] in Central venous bloodOrdered By: Efraín Leon on 10-05-2024 CO2 [Moles/Vol] 21.5 mmol/L 21.0-32.0 [facility] Chloride assayOrdered By: Samina Leon on 10-05-2024 Chloride [Moles/Vol] 101 mmol/L 98-108 [facility] Comprehensive Metabolic Prof ilon 10-05-2024 Albumin [Mass/Vol] 4.0 g/dL Normal 3.4-4.8 [facility] Comment on above: Order Comment: Order Date: 02/25/24 Order Info: [id number] - CBCD Performed By: #### L 503.6550, L500.4050, L100.0100, L502.0250, L501.9985, L500.4100, L503.6150 #### [facility] [address] [place], [address] Albumin/Globulin [Mass ratio] 1.4 {ratio} Normal 0.9-2.4 [facility] Comment on above: Order Comment: Order Date: 02/25/24 Order Info: 0184- - CBCD Performed By: #### L 503.6550, L500.4050, L100.0100, L502.0250, L501.9985, L500.4100, L503.6150 #### [facility] [address] [place], [address] ALK PHOS 78 U/L Normal 40-129 [facility] Comment on above: Order Comment: Order Date: 02/25/24 Order Info: 0184-1 - CBCD Performed By: #### L 503.6550, L500.4050, L100.0100, L502.0250, L501.9985, L500.4100, L503.6150 #### [facility] [address] [place], [address] ALT [Catalytic activity/Vol] 22 U/L Normal <=46 [facility] Comment on above: Order Comment: Order Date: 02/25/24 Order Info: 0184-1 - CBCD Performed By: #### L 503.6550, L500.4050, L100.0100, L502.0250, L501.9985, L500.4100, L503.6150 #### [facility] [address] [place], [address] AST [Catalytic activity/Vol] 18 U/L Normal <=37 [facility] Comment on above: Order Comment: Order Date: 02/25/24 Order Info: 0184-1 - CBCD Performed By: #### L 503.6550, L500.4050, L100.0100, L502.0250, L501.9985, L500.4100, L503.6150 #### [facility] [address] [place], [address] Bilirubin [Mass/Vol] 0.27 mg/dL Normal 0.00-1.30 [facility] Comment on above: Order Comment: Order Date: 02/25/24 Order Info: 0184-1 - CBCD Performed By: #### L 503.6550, L500.4050, L100.0100, L502.0250, L501.9985, L500.4100, L503.6150 #### [facility] [address] [place], [address] BUN/CRE 24.1 RATIO High 10-20 [facility] Comment on above: Order Comment: Order Date: 02/25/24 Order Info: 0184-1 - CBCD Performed By: #### L 503.6550, L500.4050, L100.0100, L502.0250, L501.9985, L500.4100, L503.6150 #### [facility] [address] [place], [address] Calcium [Mass/Vol] 9.7 mg/dL Normal 7.6-11.0 [facility] Comment on above: Order Comment: Order Date: 02/25/24 Order Info: 0184-1 - CBCD Performed By: #### L 503.6550, L500.4050, L100.0100, L502.0250, L501.9985, L500.4100, L503.6150 #### [facility] [address] [place], [address] Chloride [Moles/Vol] 101 mmol/L Normal 98-108 [facility] Comment on above: Order Comment: Order Date: 02/25/24 Order Info: 0184-1 - CBCD Performed By: #### L 503.6550, L500.4050, L100.0100, L502.0250, L501.9985, L500.4100, L503.6150 #### [facility] [address] [place], [address] CO2 [Moles/Vol] 21.5 mmol/L Normal 21.0-32.0 [facility] Comment on above: Order Comment: Order Date: 02/25/24 Order Info: 0184-1 - CBCD Performed By: #### L 503.6550, L500.4050, L100.0100, L502.0250, L501.9985, L500.4100, L503.6150 #### [facility] [address] [place], [address] Creatinine [Mass/Vol] 0.92 mg/dL Normal 0.70-1.20 [facility] Comment on above: Order Comment: Order Date: 02/25/24 Order Info: 0184-1 - CBCD Performed By: #### L 503.6550, L500.4050, L100.0100, L502.0250, L501.9985, L500.4100, L503.6150 #### [facility] [address] [place], [address] GAP 14 Normal 5-15 [facility] Comment on above: Order Comment: Order Date: 02/25/24 Order Info: 0184- - CBCD Performed By: #### L 503.6550, L500.4050, L100.0100, L502.0250, L501.9985, L500.4100, L503.6150 #### [facility] [address] [place], [address] GFR/1.73 sq M.predicted among non-blacks MDRD (S/P/Bld) [Vol rate/Area] 88 mL/min/{1.73_m2} Normal >60 [facility] Comment on above: Order Comment: Order Date: 02/25/24 Order Info: 0184- - CBCD Result Comment: mL/m in/1.73m2 CKD-EPI Creatinine Equation (2020) Performed By: #### L 503.6550, L500.4050, L100.0100, L502.0250, L501.9985, L500.4100, L503.6150 #### [facility] [address] [place], [address] Globulin (S) [Mass/Vol] 3.0 g/dL Normal 2.2-4.2 [facility] Comment on above: Order Comment: Order Date: 02/25/24 Order Info: 0184-1 - CBCD Performed By: #### L 503.6550, L500.4050, L100.0100, L502.0250, L501.9985, L500.4100, L503.6150 #### [facility] [address] [place], [address] Glucose [Mass/Vol] 162 mg/dL High 70-99 [facility] Comment on above: Order Comment: Order Date: 02/25/24 Order Info: 0184- - CBCD Performed By: #### L 503.6550, L500.4050, L100.0100, L502.0250, L501.9985, L500.4100, L503.6150 #### [facility] [address] [place], [address] Potassium [Moles/Vol] 4.2 mmol/L Normal 3.3-5.1 [facility] Comment on above: Order Comment: Order Date: 02/25/24 Order Info: 0184- - CBCD Performed By: #### L 503.6550, L500.4050, L100.0100, L502.0250, L501.9985, L500.4100, L503.6150 #### [facility] [address] [place], [address] Sodium [Moles/Vol] 137 mmol/L Normal 133-145 [facility] Comment on above: Order Comment: Order Date: 02/25/24 Order Info: 0184- - CBCD Performed By: #### L 503.6550, L500.4050, L100.0100, L502.0250, L501.9985, L500.4100, L503.6150 #### [facility] [address] [place], [address] T PROT 7.0 g/dL Normal 5.9-8.4 [facility] Comment on above: Order Comment: Order Date: 02/25/24 Order Info: 0184-1 - CBCD Performed By: #### L 503.6550, L500.4050, L100.0100, L502.0250, L501.9985, L500.4100, L503.6150 #### [facility] [address] [place], [address] Urea nitrogen [Mass/Vol] 22 mg/dL High - [facility] Comment on above: Order Comment: Order Date: 02/25/24 Order Info: 0184-1 - CBCD Performed By: #### L 503.6550, L500.4050, L100.0100, L502.0250, L501.9985, L500.4100, L503.6150 #### [facility] [address] [place], [address] Erythrocyte distribution wid th ratioOrdered By: Efraín Leon on 10-05-2024 Erythrocyte distribution width (RBC) [Ratio] 15.0 % High 11.6-14.6 [facility] Erythrocyte distribution wid th standard deviationOrdered By: Efraín Leon on 10-05-2024 Erythrocyte distribution width (RBC) [Ratio] 45.9 fl High 35.1-43.9 [facility] Glomerular filtration rate ( GFR) estimation/1.73 sq m using serum, plasma, or whole bOrdered By: Efraín Leon on 10-05-2024 GFR/1.73 sq M.predicted among non-blacks MDRD (S/P/Bld) [Vol rate/Area] 88 mL/min/{1.73_m2} >60 [facility] Comment on above: mL/min/1.73m2 CKD-EP I Creatinine Equation (2020) Hematocrit Auto (Bld) [Volum e fraction]Ordered By: Efraín Leon on 10-05-2024 Hematocrit (Bld) [Volume fraction] 40.9 % 40-54 [facility] Hemoglobin measurementOrdere d By: Efraín Leon on 10-05-2024 Hemoglobin (Bld) [Mass/Vol] 12.6 g/dL Low 13.0-16.5 [facility] Iron measurement (mass/mass) Ordered By: Efraín Leon on 10-05-2024 Iron (Unsp spec) [Mass/Mass] 44 ug/dL Low 65-175 [facility] - Chemistry and C hemistry - challengeOrdered By: Efraín Leon on 10-05-2024 AST [Catalytic activity/Vol] 18 U/L <38 [facility] MCV (mean corpuscular volume ) determinationOrdered By: Efraín Leon on 10-05-2024 MCV (RBC) [Entitic vol] 84.7 fL 80-94 [facility] Mean corpuscular hemoglobin (MCH) determinationOrdered By: Efraín Leon on 10-05-2024 MCH (RBC) [Entitic mass] 26.1 pg Low 27.0-32.0 [facility] Mean corpuscular hemoglobin concentration (MCHC) determinationOrdered By: Efraín Leon on 10-05-2024 MCHC (RBC) [Mass/Vol] 30.8 g/dL Low 32-36 [facility] Mean platelet volume determi nationOrdered By: Efraín Leon on 10-05-2024 Platelet mean volume (Bld) [Entitic vol] 10.1 fL 6.2-12.0 [facility] No Panel InformationOrdered By: Efraín Leon on 10-05-2024 Unsaturated Iron Binding Capacity 324 ug/dL 228-428 [facility] Platelet countOrdered By: Samina Leon on 10-05-2024 Platelets (Bld) [#/Vol] 297 10*3/uL 150-450 [facility] Potassium measurement (mass/ volume)Ordered By: Efraín Leon on 10-05-2024 Potassium (Unsp spec) [Mass/Vol] 4.2 mmol/L 3.3-5.1 [facility] RBC Auto (Bld) [#/Vol]Ordere d By: Efraín Leon on 10-05-2024 RBC (Bld) [#/Vol] 4.83 10*6/uL 4.6-6.[address] [facility] Serum creatinine measurement (mass/volume)Ordered By: Efraín Leon on 10-05-2024 Creatinine [Mass/Vol] 0.92 mg/dL 0.70-1.20 [facility] Serum globulin measurementOr dered By: Efraín Leon on 10-05-2024 Globulin (S) [Mass/Vol] 3.0 g/dL 2.2-4.2 [facility] Serum glucose measurement (m ass/volume)Ordered By: Efraín Leon on 10-05-2024 Glucose [Mass/Vol] 162 mg/dL High 70-99 [facility] Serum or plasma alanine maza otransferase (ALT) measurementOrdered By: Efraín Leon on 10-05-2024 ALT [Catalytic activity/Vol] 22 U/L <47 [facility] Serum or plasma albumin micheline urement (mass/volume)Ordered By: Efraín Leon on 10-05-2024 Albumin [Mass/Vol] 4.0 g/dL 3.4-4.8 [facility] Serum or plasma albumin/glob ulin mass ratioOrdered By: Efraín Leon on 10-05-2024 Albumin/Globulin [Mass ratio] 1.4 {ratio} 0.9-2.4 [facility] Serum or plasma alkaline dede sphatase measurementOrdered By: Efraín Leon on 10-05-2024 ALP [Catalytic activity/Vol] 78 U/L 40-129 [facility] Serum or plasma calcium micheline urement (mass/volume)Ordered By: Efraín Leon on 10-05-2024 Calcium [Mass/Vol] 9.7 mg/dL 7.6-11.0 [facility] Serum or plasma ferritin gabriela surement (mass/volume)Ordered By: Efraín Leon on 10-05-2024 Ferritin [Mass/Vol] 11 ng/mL Low 37-[address] [facility] Serum or plasma iron saturat ion measurement (mass fraction)Ordered By: Efraín Leon on 10-05-2024 Iron saturation [Mass fraction] 12.0 % 9-55 [facility] Serum or plasma thiamine gabriela surement (mass/volume)Ordered By: Efraín Leon on 10-05-2024 Thiamine [Mass/Vol] 122.0 nmol/L 66.5-200.0 [facility] Comment on above: Performed at: [address] [id number] Director: Dominik Lamb MD, Phone: [phone] Serum or plasma urea nitroge n measurement (mass/volume)Ordered By: Efraín Leon on 10-05-2024 Urea nitrogen [Mass/Vol] 22 mg/dL High 4-19 [facility] Sodium levelOrdered By: Efraín Leon on 10-05-2024 Sodium [Moles/Vol] 137 mmol/L 133-145 [facility] Total proteinOrdered By: Edmund Leon on 10-05-2024 Protein [Mass/Vol] 7.0 g/dL 5.9-8.4 [facility] Vitamin B12 ser/plasOrdered By: Efraín Leon on 10-05-2024 Cobalamin (Vitamin B12) [Mass/Vol] 649 pg/mL 180-914 [facility] White blood cell (WBC) count Ordered By: Efraín Leon on 10-05-2024 WBC (Bld) [#/Vol] 6.4 10*3/uL 4.4-11.0 [facility] Absolute lymphocyte countOrd ered By: Efraín Leon on 06-22-2024 Lymphocytes Auto (Unsp spec) [#/Vol] 1.21 10*3/uL 0.83-4.51 [facility] Absolute neutrophil countOrd ered By: Efraín Leon on 06-22-2024 Neutrophils (Bld) [#/Vol] 3.4 10*3/uL 2.0-7.7 [facility] Automated lymphocyte count a s percentage of total leukocytesOrdered By: Efraín Leon on 06-22-2024 Lymphocytes/100 WBC Auto (Unsp spec) 22.8 % 19-41 [facility] Basophil percentageOrdered B y: Efraín Leon on 06-22-2024 Basophils/100 WBC (Bld) 0.9 % 0-1 [facility] CBC W/Diff, Automatedon Absolute Lymph 1.21 X10 3/uL Normal 0.83-4.51 [facility] Comment on above: Performed By: #### L 503.0106, L503.6550, L100.0100, L503.6030 #### [facility] [place], [address] Absolute Neut 3.4 X10 3/uL Normal 2.0-7.7 [facility] Comment on above: Performed By: #### L 503.0106, L503.6550, L100.0100, L503.6030 #### [facility] [address] [place], [address] Basophils/100 WBC (Bld) 0.9 % Normal 0-1 [facility] Comment on above: Performed By: #### L 503.0106, L503.6550, L100.0100, L503.6030 #### [facility] [address] [place], [address] Eosinophils/100 WBC (Bld) 2.1 % Normal 0-5 [facility] Comment on above: Performed By: #### L 503.0106, L503.6550, L100.0100, L503.6030 #### [facility] [address] [place], [address] Erythrocyte distribution width (RBC) [Ratio] 13.9 % Normal 11.6-14.6 [facility] Comment on above: Performed By: #### L 503.0106, L503.6550, L100.0100, L503.6030 #### [facility] [address] [place], [address] Hematocrit (Bld) [Volume fraction] 41.4 % Normal 40-54 [facility] Comment on above: Performed By: #### L 503.0106, L503.6550, L100.0100, L503.6030 #### [facility] [address] [place], [address] Hemoglobin (Bld) [Mass/Vol] 13.1 g/dL Normal 13.0-16.5 [facility] Comment on above: Performed By: #### L 503.0106, L503.6550, L100.0100, L503.6030 #### [facility] [address] [place], [address] IG% 0.200 Normal 0.0-0.9 [facility] Comment on above: Result Comment: IG% - Immature Granulocytes (promyelocytes, myelocytes and metamyelocytes) > 1% indicates that a LEFT SHIFT is Present. Performed By: #### L 503.0106, L503.6550, L100.0100, L503.6030 #### [facility] [address] [place], [address] Lymphocytes/100 WBC (Bld) 22.8 % Normal 19-41 [facility] Comment on above: Performed By: #### L 503.0106, L503.6550, L100.0100, L503.6030 #### [facility] [address] [place], [address] MCH (RBC) [Entitic mass] 27.8 pg Normal 27.0-32.0 [facility] Comment on above: Performed By: #### L 503.0106, L503.6550, L100.0100, L503.6030 #### [facility] [address] [place], [address] MCHC (RBC) [Mass/Vol] 31.6 g/dL Low 32-36 [facility] Comment on above: Performed By: #### L 503.0106, L503.6550, L100.0100, L503.6030 #### [facility] [address] [place], [address] MCV (RBC) [Entitic vol] 87.9 fL Normal 80-94 [facility] Comment on above: Performed By: #### L 503.0106, L503.6550, L100.0100, L503.6030 #### [facility] [address] [place], [address] Monocytes/100 WBC (Bld) 9.6 % Normal 0-10 [facility] Comment on above: Performed By: #### L 503.0106, L503.6550, L100.0100, L503.6030 #### [facility] [address] [place], [address] Neutrophils/100 WBC (Bld) 64.4 % Normal 47-70 [facility] Comment on above: Performed By: #### L 503.0106, L503.6550, L100.0100, L503.6030 #### [facility] [address] [place], [address] Nucleated RBC (Bld) [#/Vol] 0 10*3/uL Normal 0-5 [facility] Comment on above: Performed By: #### L 503.0106, L503.6550, L100.0100, L503.6030 #### [facility] [address] [place], [address] Platelet mean volume (Bld) [Entitic vol] 10.0 fL Normal 6.2-12.0 [facility] Comment on above: Performed By: #### L 503.0106, L503.6550, L100.0100, L503.6030 #### [facility] [address] [place], [address] Platelets (Bld) [#/Vol] 254 10*3/uL Normal 150-450 [facility] Comment on above: Performed By: #### L 503.0106, L503.6550, L100.0100, L503.6030 #### [facility] [address] [place], [address] RBC (Bld) [#/Vol] 4.71 10*6/uL Normal 4.6-6.[address] [facility] Comment on above: Performed By: #### L 503.0106, L503.6550, L100.0100, L503.6030 #### [facility] [address] [place], [address] RDW SD 44.7 fl High 35.1-43.9 [facility] Comment on above: Performed By: #### L 503.0106, L503.6550, L100.0100, L503.6030 #### [facility] [address] [place], [address] WBC (Bld) [#/Vol] 5.3 10*3/uL Normal 4.4-11.0 [facility] Comment on above: Performed By: #### L 503.0106, L503.6550, L100.0100, L503.6030 #### [facility] [address] [place], [address] Eosinophil percentageOrdered By: Efraín Leon on 06-22-2024 Eosinophils/100 WBC (Bld) 2.1 % 0-5 [facility] Erythrocyte distribution wid th ratioOrdered By: Efraín Leon on 06-22-2024 Erythrocyte distribution width (RBC) [Ratio] 13.9 % 11.6-14.6 [facility] Erythrocyte distribution wid th standard deviationOrdered By: Efraín Leon on 06-22-2024 Erythrocyte distribution width (RBC) [Ratio] 44.7 fl High 35.1-43.9 [facility] Ferritinon 06-22-2024 Ferritin [Mass/Vol] 13 ng/mL Low 37-[address] [facility] Comment on above: Performed By: #### L 503.6550, L500.4050, L100.0100, L502.0250, L501.9985, L500.4100, L503.6150 #### [facility] [address] [place], [address] Hematocrit Auto (Bld) [Volum e fraction]Ordered By: Efraín Leon on 06-22-2024 Hematocrit (Bld) [Volume fraction] 41.4 % 40-54 [facility] Hemoglobin measurementOrdere d By: Efraín Leon on 06-22-2024 Hemoglobin (Bld) [Mass/Vol] 13.1 g/dL 13.0-16.5 [facility] Immature granulocytes/100 WB C Auto (Bld)Ordered By: Efraín Leon on 06-22-2024 Immature granulocytes/100 WBC (Bld) 0.200 % 0.0-0.9 [facility] Comment on above: IG% - Immature Granu locytes (promyelocytes, myelocytes and metamyelocytes) > 1% indicates that a LEFT SHIFT is Present. Iron measurement (mass/mass) Ordered By: Efraín Leon on 06-22-2024 Iron (Unsp spec) [Mass/Mass] 37 ug/dL Low 65-175 [facility] Iron+Iron Binding Capacityon 06-22-2024 Iron [Mass/Vol] 37 ug/dL Low 65-175 [facility] Comment on above: Performed By: #### L 503.6550, L500.4050, L100.0100, L502.0250, L501.9985, L500.4100, L503.6150 #### [facility] [address] [facility] [address] IRON SATURATION 10.0 Normal 9-55 [facility] Comment on above: Performed By: #### L 503.6550, L500.4050, L100.0100, L502.0250, L501.9985, L500.4100, L503.6150 #### [facility] [address] [place], [address] TIBC 353 ug/dL Normal 250-450 [facility] Comment on above: Performed By: #### L 503.6550, L500.4050, L100.0100, L502.0250, L501.9985, L500.4100, L503.6150 #### [facility] [address] [place], [address] UIBC 316 ug/dL Normal 228-428 [facility] Comment on above: Performed By: #### L 503.6550, L500.4050, L100.0100, L502.0250, L501.9985, L500.4100, L503.6150 #### [facility] [address] [place], [address] MCV (mean corpuscular volume ) determinationOrdered By: Efraín Leon on 06-22-2024 MCV (RBC) [Entitic vol] 87.9 fL 80-94 [facility] Mean corpuscular hemoglobin (MCH) determinationOrdered By: Efraín Leon on 06-22-2024 MCH (RBC) [Entitic mass] 27.8 pg 27.0-32.0 [facility] Mean corpuscular hemoglobin concentration (MCHC) determinationOrdered By: Efraín Leon on 06-22-2024 MCHC (RBC) [Mass/Vol] 31.6 g/dL Low 32-36 [facility] Mean platelet volume determi nationOrdered By: Efraín Leon on 06-22-2024 Platelet mean volume (Bld) [Entitic vol] 10.0 fL 6.2-12.0 [facility] Monocyte percentageOrdered B y: Efraín Leon on 06-22-2024 Monocytes/100 WBC (Bld) 9.6 % 0-10 [facility] Neutrophil percentageOrdered By: Efraín Leon on 06-22-2024 Neutrophils/100 WBC (Bld) 64.4 % 47-70 [facility] No Panel InformationOrdered By: Efraín Leon on 06-22-2024 Unsaturated Iron Binding Capacity 316 ug/dL 228-428 [facility] Nucleated red blood cell per centageOrdered By: Efraín Leon on 06-22-2024 Nucleated RBC/100 WBC (Bld) [Ratio] 0 % 0-5 [facility] Platelet countOrdered By: Samina Leon on 06-22-2024 Platelets (Bld) [#/Vol] 254 10*3/uL 150-450 [facility] RBC Auto (Bld) [#/Vol]Ordere d By: Efraín Leon on 06-22-2024 RBC (Bld) [#/Vol] 4.71 10*6/uL 4.6-6.[address] [facility] Serum or plasma ferritin gabriela surement (mass/volume)Ordered By: Efraín Leon on 06-22-2024 Ferritin [Mass/Vol] 13 ng/mL Low 37-[address] [facility] Serum or plasma iron saturat ion measurement (mass fraction)Ordered By: Efraín Leon on 06-22-2024 Iron saturation [Mass fraction] 10.0 % 9-55 [facility] Vitamin B12on 06-22-2024 Cobalamin (Vitamin B12) [Mass/Vol] 644 pg/mL Normal 180-914 [facility] Comment on above: Performed By: #### L 503.6550, L500.4050, L100.0100, L502.0250, L501.9985, L500.4100, L503.6150 #### [facility] [address] [place], [address] Vitamin B12 ser/plasOrdered By: Efraín Leon on 06-22-2024 Cobalamin (Vitamin B12) [Mass/Vol] 644 pg/mL 180-914 [facility] White blood cell (WBC) count Ordered By: Efraín Leon on 06-22-2024 WBC (Bld) [#/Vol] 5.3 10*3/uL 4.4-11.0 [facility] PSA,Total- Diagnosticon 03-20 PSA, DIAGNOSTIC 0.14 ng/mL Normal 0.0-4.0 [facility] Comment on above: Result Comment: This test was performed using the TPSA assay method for the [employer] chemistry system. Values obtained with different assay methods cannot be used interchangably. When changing PSA assays in the course of monitoring a patient, additional sequential testing should be carried out to confirm baseline values. Performed By: #### L 503.6550, L500.4050, L100.0100, L502.0250, L501.9985, L500.4100, L503.6150 #### [facility] [address] [place], [address] CBC W/Diff, Automatedon 01-0 Absolute Lymph 1.35 X10 3/uL Normal 0.83-4.51 [facility] Comment on above: Order Comment: Order Date: 02/25/24 Order Info: 0184-1 - CBCD Performed By: #### L 503.6550, L500.4050, L100.0100, L502.0250, L501.9985, L500.4100, L503.6150 #### [facility] [address] [place], [address] Absolute Neut 4.5 X10 3/uL Normal 2.0-7.7 [facility] Comment on above: Order Comment: Order Date: 02/25/24 Order Info: 0184-1 - CBCD Performed By: #### L 503.6550, L500.4050, L100.0100, L502.0250, L501.9985, L500.4100, L503.6150 #### [facility] [address] [place], [place], [phone] Basophils/100 WBC (Bld) 0.7 % Normal 0-1 [facility] Comment on above: Order Comment: Order Date: 02/25/24 Order Info: 0184-1 - CBCD Performed By: #### L 503.6550, L500.4050, L100.0100, L502.0250, L501.9985, L500.4100, L503.6150 #### [facility] [address] [place], [place], [phone] Eosinophils/100 WBC (Bld) 1.5 % Normal 0-5 [facility] Comment on above: Order Comment: Order Date: 02/25/24 Order Info: 0184-1 - CBCD Performed By: #### L 503.6550, L500.4050, L100.0100, L502.0250, L501.9985, L500.4100, L503.6150 #### [facility] [address] [place], [address] Erythrocyte distribution width (RBC) [Ratio] 13.6 % Normal 11.6-14.6 [facility] Comment on above: Order Comment: Order Date: 02/25/24 Order Info: 0184-1 - CBCD Performed By: #### L 503.6550, L500.4050, L100.0100, L502.0250, L501.9985, L500.4100, L503.6150 #### [facility] [address] [place], [address] Hematocrit (Bld) [Volume fraction] 44.6 % Normal 40-54 [facility] Comment on above: Order Comment: Order Date: 02/25/24 Order Info: 0184-1 - CBCD Performed By: #### L 503.6550, L500.4050, L100.0100, L502.0250, L501.9985, L500.4100, L503.6150 #### [facility] [address] [place], [address] Hemoglobin (Bld) [Mass/Vol] 14.6 g/dL Normal 13.0-16.5 [facility] Comment on above: Order Comment: Order Date: 02/25/24 Order Info: 0184-1 - CBCD Performed By: #### L 503.6550, L500.4050, L100.0100, L502.0250, L501.9985, L500.4100, L503.6150 #### [facility] [address] [place], [address] ( IG% 0.300 Normal 0.0-0.9 [facility] Comment on above: Order Comment: Order Date: 02/25/24 Order Info: 0184-1 - CBCD Result Comment: IG% - Immature Granulocytes (promyelocytes, myelocytes and metamyelocytes) > 1% indicates that a LEFT SHIFT is Present. Performed By: #### L 503.6550, L500.4050, L100.0100, L502.0250, L501.9985, L500.4100, L503.6150 #### [facility] [address] [place], [address] Lymphocytes/100 WBC (Bld) 20.2 % Normal 19-41 [facility] Comment on above: Order Comment: Order Date: 02/25/24 Order Info: 0184- - CBCD Performed By: #### L 503.6550, L500.4050, L100.0100, L502.0250, L501.9985, L500.4100, L503.6150 #### [facility] [address] [place], [address] MCH (RBC) [Entitic mass] 28.8 pg Normal 27.0-32.0 [facility] Comment on above: Order Comment: Order Date: 02/25/24 Order Info: 0184 - CBCD Performed By: #### L 503.6550, L500.4050, L100.0100, L502.0250, L501.9985, L500.4100, L503.6150 #### [facility] [address] [place], [address] MCHC (RBC) [Mass/Vol] 32.7 g/dL Normal 32-36 [facility] Comment on above: Order Comment: Order Date: 02/25/24 Order Info: 0184 - CBCD Performed By: #### L 503.6550, L500.4050, L100.0100, L502.0250, L501.9985, L500.4100, L503.6150 #### [facility] [address] [place], [address] MCV (RBC) [Entitic vol] 88.0 fL Normal 80-94 [facility] Comment on above: Order Comment: Order Date: 02/25/24 Order Info: 0184-1 - CBCD Performed By: #### L 503.6550, L500.4050, L100.0100, L502.0250, L501.9985, L500.4100, L503.6150 #### [facility] [address] [place], [address] Monocytes/100 WBC (Bld) 9.9 % Normal 0-10 [facility] Comment on above: Order Comment: Order Date: 02/25/24 Order Info: 0184-1 - CBCD Performed By: #### L 503.6550, L500.4050, L100.0100, L502.0250, L501.9985, L500.4100, L503.6150 #### [facility] [address] [place], [address] Neutrophils/100 WBC (Bld) 67.4 % Normal 47-70 [facility] Comment on above: Order Comment: Order Date: 02/25/24 Order Info: 0184-1 - CBCD Performed By: #### L 503.6550, L500.4050, L100.0100, L502.0250, L501.9985, L500.4100, L503.6150 #### [facility] [address] [place] [place], [address] Nucleated RBC (Bld) [#/Vol] 0 10*3/uL Normal 0-5 [facility] Comment on above: Order Comment: Order Date: 02/25/24 Order Info: 0184-1 - CBCD Performed By: #### L 503.6550, L500.4050, L100.0100, L502.0250, L501.9985, L500.4100, L503.6150 #### [facility] [address] [place], [address] Platelet mean volume (Bld) [Entitic vol] 10.4 fL Normal 6.2-12.0 [facility] Comment on above: Order Comment: Order Date: 02/25/24 Order Info: 0184-1 - CBCD Performed By: #### L 503.6550, L500.4050, L100.0100, L502.0250, L501.9985, L500.4100, L503.6150 #### [facility] [address] [place], [address] Platelets (Bld) [#/Vol] 235 10*3/uL Normal 150-450 [facility] Comment on above: Order Comment: Order Date: 02/25/24 Order Info: 0184-1 - CBCD Performed By: #### L 503.6550, L500.4050, L100.0100, L502.0250, L501.9985, L500.4100, L503.6150 #### [facility] [address] [place] [place], [address] RBC (Bld) [#/Vol] 5.07 10*6/uL Normal 4.6-6.[address] [facility] Comment on above: Order Comment: Order Date: 02/25/24 Order Info: 0184-1 - CBCD Performed By: #### L 503.6550, L500.4050, L100.0100, L502.0250, L501.9985, L500.4100, L503.6150 #### [facility] [address] [place], [address] RDW SD 43.4 fl Normal 35.1-43.9 [facility] Comment on above: Order Comment: Order Date: 02/25/24 Order Info: 0184-1 - CBCD Performed By: #### L 503.6550, L500.4050, L100.0100, L502.0250, L501.9985, L500.4100, L503.6150 #### [facility] [address] [place], [address] WBC (Bld) [#/Vol] 6.7 10*3/uL Normal 4.4-11.0 [facility] Comment on above: Order Comment: Order Date: 02/25/24 Order Info: [id number] - CBCD Performed By: #### L 503.6550, L500.4050, L100.0100, L502.0250, L501.9985, L500.4100, L503.6150 #### [facility] [address] [place], [place], [id number] Comprehensive Metabolic Prof ilon 02-25-2024 Albumin [Mass/Vol] 3.7 g/dL Normal 3.2-5.0 [facility] Comment on above: Order Comment: Order Date: 02/25/24 Order Info: 785- - CMP Order Info: - LIPID Order Info: 2497-05 Order Info: 2275-05 - KODY Performed By: #### L 503.6550, L500.4050, L100.0100, L502.0250, L501.9985, L500.4100, L503.6150 #### [facility] [address] [place], [address] Albumin/Globulin [Mass ratio] 0.9 {ratio} Normal 0.9-2.4 [facility] Comment on above: Order Comment: Order Date: 02/25/24 Order Info: 785-02 - CMP Order Info: [id number] - LIPID Order Info: 2497-05 FE Order Info: 2275-05 - KODY Performed By: #### L 503.6550, L500.4050, L100.0100, L502.0250, L501.9985, L500.4100, L503.6150 #### [facility] [address] [place], [place], [phone] ALK P 85 U/L Normal 45-117 [facility] Comment on above: Order Comment: Order Date: 02/25/24 Order Info: 07 - CMP Order Info: [id number] - LIPID Order Info: 2497-05 FE Order Info: 2275-05 - KODY Performed By: #### L 503.6550, L500.4050, L100.0100, L502.0250, L501.9985, L500.4100, L503.6150 #### [facility] [address] [place], [place], [id number] ALT [Catalytic activity/Vol] 30 U/L Normal 16-61 [facility] Comment on above: Order Comment: Order Date: 02/25/24 Order Info: 0786-1 - CMP Order Info: [id number] - LIPID Order Info: 2497-05 Order Info: 2275-05 - KODY Performed By: #### L 503.6550, L500.4050, L100.0100, L502.0250, L501.9985, L500.4100, L503.6150 #### [facility] [address] [place], [place], [id number] AST [Catalytic activity/Vol] 14 U/L Low 15-37 [facility] Comment on above: Order Comment: Order Date: 02/25/24 Order Info: 785- - CMP Order Info: - LIPID Order Info: 2497-05 Order Info: 2275-05 - KODY Performed By: #### L 503.6550, L500.4050, L100.0100, L502.0250, L501.9985, L500.4100, L503.6150 #### [facility] [address] [place], [place], [address] Bilirubin [Mass/Vol] 0.40 mg/dL Normal 0.20-1.00 [facility] Comment on above: Order Comment: Order Date: 02/25/24 Order Info: 07-1 - CMP Order Info: [id number] - LIPID Order Info: 2497-05 Order Info: 2275-05 - KODY Result Comment: For patients on eltrombopag therapy, use of Dimension [place] TBIL is not recommended. Performed By: #### L 503.6550, L500.4050, L100.0100, L502.0250, L501.9985, L500.4100, L503.6150 #### [facility] [address] [place], [address] BUN/CRE 24.5 RATIO High 10-20 [facility] Comment on above: Order Comment: Order Date: 02/25/24 Order Info: 0786-1 - CMP Order Info: [id number] - LIPID Order Info: 2497-05 - FE Order Info: 2276-4 - KODY Performed By: #### L 503.6550, L500.4050, L100.0100, L502.0250, L501.9985, L500.4100, L503.6150 #### [facility] [address] [place], [address] CA,Total 10.1 mg/dL Normal 8.5-10.1 [facility] Comment on above: Order Comment: Order Date: 02/25/24 Order Info: 785-02 - CMP Order Info: [id number] - LIPID Order Info: 2497-05 - FE Order Info: 4 - KODY Performed By: #### L 503.6550, L500.4050, L100.0100, L502.0250, L501.9985, L500.4100, L503.6150 #### [facility] [address] [place], [address] Chloride [Moles/Vol] 102 mmol/L Normal 98-107 [facility] Comment on above: Order Comment: Order Date: 02/25/24 Order Info: 07- - CMP Order Info: [id number] - LIPID Order Info: 2497-05 - FE Order Info: 227-4 - KODY Performed By: #### L 503.6550, L500.4050, L100.0100, L502.0250, L501.9985, L500.4100, L503.6150 #### [facility] [address] [place], [address] CO2 [Moles/Vol] 28.0 mmol/L Normal 21.0-32.0 [facility] Comment on above: Order Comment: Order Date: 02/25/24 Order Info: 785- - CMP Order Info: - LIPID Order Info: 2497-05 Order Info: 2275-05 - KODY Performed By: #### L 503.6550, L500.4050, L100.0100, L502.0250, L501.9985, L500.4100, L503.6150 #### [facility] [address] [place], [address] Creatinine [Mass/Vol] 0.98 mg/dL Normal 0.70-1.30 [facility] Comment on above: Order Comment: Order Date: 02/25/24 Order Info: 785-02 - CMP Order Info: - LIPID Order Info: 2497-05 Order Info: 2275-05 - KODY Result Comment: The validity of the calculated GFR GFRAA in patients over 70 years has not been determined. Clinical correlation is essential. Performed By: #### L 503.6550, L500.4050, L100.0100, L502.0250, L501.9985, L500.4100, L503.6150 #### [facility] [address] [place], [place], [phone] GFR - AA 97 mL/min Normal >60 [facility] Comment on above: Order Comment: Order Date: 02/25/24 Order Info: 785-02 - CMP Order Info: - LIPID Order Info: 2497-05 Order Info: 2275-05 - KODY Result Comment: Afri can Mont[place] GFR Calc Performed By: #### L 503.6550, L500.4050, L100.0100, L502.0250, L501.9985, L500.4100, L503.6150 #### [facility] [address] [place], [address] GAP 7 Normal 5-15 [facility] Comment on above: Order Comment: Order Date: 02/25/24 Order Info: 785-02 - CMP Order Info: - LIPID Order Info: 2497-05 Order Info: 2275-05 - KODY Performed By: #### L 503.6550, L500.4050, L100.0100, L502.0250, L501.9985, L500.4100, L503.6150 #### [facility] [address] [place], [address] GFR/1.73 sq M.predicted among non-blacks MDRD (S/P/Bld) [Vol rate/Area] 80 mL/min/{1.73_m2} Normal >60 [facility] Comment on above: Order Comment: Order Date: 02/25/24 Order Info: 785- - CMP Order Info: - LIPID Order Info: 2497-05 Order Info: 2275-05 - KODY Result Comment: Non- GFR Calc Performed By: #### L 503.6550, L500.4050, L100.0100, L502.0250, L501.9985, L500.4100, L503.6150 #### [facility] [address] [place], [address] Globulin (S) [Mass/Vol] 4.2 g/dL Normal 2.2-4.2 [facility] Comment on above: Order Comment: Order Date: 02/25/24 Order Info: 0786 - CMP Order Info: [id number] - LIPID Order Info: 2497-05 Order Info: 2275-05 - KODY Performed By: #### L 503.6550, L500.4050, L100.0100, L502.0250, L501.9985, L500.4100, L503.6150 #### [facility] [address] [place], [address] Glucose [Mass/Vol] 142 mg/dL High 74-106 [facility] Comment on above: Order Comment: Order Date: 02/25/24 Order Info: 0786-1 - CMP Order Info: [id number] - LIPID Order Info: 2497-05 Order Info: 2275-05 - KODY Result Comment: Fast ing Glucose result greater than or equal to 126 mg/dL suggests DIABETES MELLITUS per A.D.A. criteria. Performed By: #### L 503.6550, L500.4050, L100.0100, L502.0250, L501.9985, L500.4100, L503.6150 #### [facility] [address] [place], [address] Potassium [Moles/Vol] 4.3 mmol/L Normal 3.5-5.1 [facility] Comment on above: Order Comment: Order Date: 02/25/24 Order Info: 07- - CMP Order Info: - LIPID Order Info: 2497-05 Order Info: 2275-05 - KODY Performed By: #### L 503.6550, L500.4050, L100.0100, L502.0250, L501.9985, L500.4100, L503.6150 #### [facility] [address] [place], [address] Sodium [Moles/Vol] 137 mmol/L Normal 136-145 [facility] Comment on above: Order Comment: Order Date: 02/25/24 Order Info: 0786 - CMP Order Info: [id number] - LIPID Order Info: 2497-05 Order Info: 2275-05 - KODY Performed By: #### L 503.6550, L500.4050, L100.0100, L502.0250, L501.9985, L500.4100, L503.6150 #### [facility] [address] [place], [address] T PROT 7.9 g/dL Normal 6.4-8.2 [facility] Comment on above: Order Comment: Order Date: 02/25/24 Order Info: 07861 - CMP Order Info: [id number] - LIPID Order Info: 2497-05 - FE Order Info: 2276-4 - KODY Performed By: #### L 503.6550, L500.4050, L100.0100, L502.0250, L501.9985, L500.4100, L503.6150 #### [facility] [address] [place], [address] Urea nitrogen [Mass/Vol] 24 mg/dL High 7-18 [facility] Comment on above: Order Comment: Order Date: 02/25/24 Order Info: 0786-1 - CMP Order Info: [id number] - LIPID Order Info: 24909-20 - FE Order Info: 2275-05 - KODY Performed By: #### L 503.6550, L500.4050, L100.0100, L502.0250, L501.9985, L500.4100, L503.6150 #### [facility] [address] [place], [place], [phone] (198) Ferritinon 02-25-2024 Ferritin [Mass/Vol] 11 ng/mL Low 26-[address] [facility] Comment on above: Order Comment: Order Date: 02/25/24 Order Info: 0786-1 - CMP Order Info: [id number] - LIPID Order Info: 24909-20 - FE Order Info: 2275-05 - KODY Performed By: #### L 503.6550, L500.4050, L100.0100, L502.0250, L501.9985, L500.4100, L503.6150 #### [facility] [address] [place], [address] Hemoglobin A1con 02-25-2024 HbA1c (Bld) [Mass fraction] 6.8 % High 3.8-5.6 [facility] Comment on above: Order Comment: Order Date: 02/25/24 Order Info: [id number] - A1C Result Comment: Norm al < 5.7 % Prediabetic 5.7 - 6.4 % Diabetic >or= 6.5 % Please note range changes. Performed By: #### L 503.6550, L500.4050, L100.0100, L502.0250, L501.9985, L500.4100, L503.6150 #### [facility] [address] [place], [address] Ironon 02-25-2024 Iron [Mass/Vol] 48 ug/dL Low 65-175 [facility] Comment on above: Order Comment: Order Date: 02/25/24 Order Info: 0786-1 - CMP Order Info: [id number] - LIPID Order Info: 24909-20 - FE Order Info: 2275-05 - KODY Performed By: #### L 503.6550, L500.4050, L100.0100, L502.0250, L501.9985, L500.4100, L503.6150 #### [facility] [address] [place], [address] Iron Binding Capacity,Totalo n 02-25-2024 TIBC 389 ug/dL Normal 250-450 [facility] Comment on above: Order Comment: Order Date: 02/25/24 Order Info: 0786- - CMP Order Info: - LIPID Order Info: 2497-05 - FE Order Info: 2275-05 - KODY Performed By: #### L 503.6075 #### [facility] [address] [place], [address] Lipid Profileon 02-25-2024 Cholesterol [Mass/Vol] 138 mg/dL Normal 200 [facility] Comment on above: Order Comment: Order Date: 02/25/24 Order Info: 0786- - CMP Order Info: [id number] - LIPID Order Info: 24909-20 - FE Order Info: 2275-05 - KODY Result Comment: <200 mg/dL Desirable 200-240 mg/dL Borderline >240 mg/dL High Risk Performed By: #### L 503.6550, L500.4050, L100.0100, L502.0250, L501.9985, L500.4100, L503.6150 #### [facility] [address] [place], [address] Cholesterol in HDL [Mass/Vol] 49 mg/dL Normal [facility] Comment on above: Order Comment: Order Date: 02/25/24 Order Info: 0786- - CMP Order Info: [id number] - LIPID Order Info: 2497-05 Order Info: 2275- - KODY Result Comment: The drugs N-Acetylcysteine and Metamizole may falsely depress this assay. Reference Range HDL <40 mg/dL Low HDL Cholesterol HDL >or= 60 mg/dL High HDL Cholesterol Performed By: #### L 503.6550, L500.4050, L100.0100, L502.0250, L501.9985, L500.4100, L503.6150 #### [facility] [address] [place], [address] Cholesterol in LDL [Mass/Vol] 52 mg/dL Normal 0-130 [facility] Comment on above: Order Comment: Order Date: 02/25/24 Order Info: 07 - CMP Order Info: [id number] - LIPID Order Info: 2497-05 Order Info: 2275-05 - KODY Performed By: #### L 503.6550, L500.4050, L100.0100, L502.0250, L501.9985, L500.4100, L503.6150 #### [facility] [address] [place], [address] Cholesterol in VLDL [Mass/Vol] 37 mg/dL Normal 5-40 [facility] Comment on above: Order Comment: Order Date: 02/25/24 Order Info: 07 - CMP Order Info: - LIPID Order Info: 2497-05 Order Info: 2275-05 - KODY Performed By: #### L 503.6550, L500.4050, L100.0100, L502.0250, L501.9985, L500.4100, L503.6150 #### [facility] [address] [place], [address] Triglyceride [Mass/Vol] 183 mg/dL Normal [facility] Comment on above: Order Comment: Order Date: 02/25/24 Order Info: 0786-1 - CMP Order Info: [id number] - LIPID Order Info: 2498-4 - FE Order Info: 2276-4 - KODY Result Comment: The drugs N-Acetylcysteine and Metamizole may falsely depress this assay. Serum Triglycerides Reference Interval Normal <150 mg/dL Borderline high 150 - 199 mg/dL High 200 - 499 mg/dL Very High > or = 500 mg/dL Performed By: #### L 503.6550, L500.4050, L100.0100, L502.0250, L501.9985, L500.4100, L503.6150 #### [facility] [address] [place], [address] Microalb:Creat Ratio,Random URon 02-25-2024 Creatinine [Mass/Vol] 66.40 mg/dL Normal NO RANGE EST. [facility] Comment on above: Order Comment: Order Date: 02/25/24 Order Info: 0779-1 - MIACRE Performed By: #### L 503.6550, L500.4050, L100.0100, L502.0250, L501.9985, L500.4100, L503.6150 #### [facility] [address] [place], [address] MALB:CRE 9.0 mg/g CRE Normal <30 mg/g CRE [facility] Comment on above: Order Comment: Order Date: 02/25/24 Order Info: 0779-1 - MIACRE Performed By: #### L 503.6550, L500.4050, L100.0100, L502.0250, L501.9985, L500.4100, L503.6150 #### [facility] [address] [place], [address] MICROALBUMIN,UR 6.0 mg/L Normal NO RANGE EST. [facility] Comment on above: Order Comment: Order Date: 02/25/24 Order Info: 0779-1 - MIACRE Performed By: #### L 503.6550, L500.4050, L100.0100, L502.0250, L501.9985, L500.4100, L503.6150 #### [facility] [address] [place], [address] Vital Signs Date Time Vital Sign Value Performing Clinician Sheltoni lity 10-19-2024 14:14-0400 Body height 175.[address] Efraín Leon MD Work Phone: [facility] 10-19-2024 14:14-0400 Body mass index (BMI) [Ratio] 39.2 kg/m2 Dr. Efraín Leon MD Work Phone: [facility] 10-19-2024 14:14-0400 Body weight 120.[address] Efraín Leon MD Work Phone: [facility] 10-19-2024 14:14-0400 Diastolic blood pressure 75 mm[Hg] Dr. Efraín Leon MD Work Phone: [facility] 10-19-2024 14:14-0400 Respiratory rate 16 /min Dr. Efraín Leon MD Work Phone: [facility] 10-19-2024 14:14-0400 Systolic blood pressure 119 mm[Hg] Dr. Efraín Leon MD Work Phone: [facility] Encounters Encounter Date Encounter Type Care Provider Facility Start: 11-02-2024 ambulatory Mello Rosado lity:[facility] Start: 10-19-2024 End: 10-19-[address] Mello Colon MD -[facility] Work Phone: Start: 10-19-2024 End: 10-19-[address] Efraín Leon MD Work Phone: -[facility] Start: 10-05-2024 End: 10-05-[address] Efraín Leon MD Work Phone: -Laboratory [facility] Start: 10-05-2024 End: 10-05-[address] Efraín Leon MD -Laboratory [facility] Start: 10-05-2024 End: 10-05-2024 ambulatory Efraín Leon Facility:[facility] Start: 06-22-2024 End: 06-22-[address] Efraín Leon MD Work Phone: [facility] Work Phone: Start: 06-22-2024 End: 06-22-[address] Efraín Leon MD -Laboratory, [facility] Start: 06-22-2024 End: 06-22-2024 ambulatory Efraín Leon Facility:[facility] Start: 04-06-2024 End: 04-06-[address] Kavon Cruz MD -Laboratory, [facility] Start: 04-06-2024 End: 04-06-2024 ambulatory Kavon Cruz Facility:[facility] Start: 03-01-2024 ambulatory Efraín Leon Facilit y:[facility] Start: 02-25-2024 End: 02-25-2024 ambulatory Efraín Leon Facility:[facility] Procedures Date Procedure Procedure Detail Performing Clinician Start: 10-05-[address] Edmund Leon MD Work Phone: Comment on above: Performed at: [address] [id number] Director: Rikki Jane PhD, Phone: [phone] Start: 10-05-2024 Total iron binding c apacity measurement Dr. Efraín Leon MD Work Phone: Start: 10-05-[address] Efraín Leon MD Work Phone: Comment on above: Deficiency: <3.4 Mar ginal: 3.4 - 5.1 Adequate: >5.1 Start: 06-22-2024 Total iron binding c apacity measurement Dr. Efraín Leon MD Work Phone: Start: 04-06-2024 Assay of prostate sp ecific antigen total Dr. Efraín Leon MD Work Phone: Comment on above: This test was perfor med using the TPSA assay method for [employer] chemistry system. Values obtained with differentassay methods cannot be used interchangably.When changing PSA assays in the course of monitoring apatient, additional sequential testing should be carriedout to confirm baseline values. H/O: surgery S/P prostatectomy Dr. Efraín dietz MD Work Phone: Comment on above: with radiation Plan of Treatment Date Care Activity Detail Author Start: 10-05-2024 Thiamine measurement [facility] Start: 10-05-2024 Vitamin B6 measurement [facility] Payers Date Payer Category Payer Private Health Insurance [id number] 2024 Self-pay Private Health Insurance [id number] Unknown [id number] 2.16.8 [id number] Unknown [id number] 2.16.8 [id number] Unknown [id number] 2.16.8 [id number] Unknown [id number] 2.16.8 [id number] Unknown [id number] 2.16.8 [id number] Unknown [id number] 2.16.8 [id number] Unknown [id number] 2.16.8 [id number] Social History Date Type Detail [facility] Work Phone: Start: 1950 Sex Assigned At Male [facility] Start: 10-19-2024 Tobacco smoking stat us NHIS Ex-smoker (finding) [facility] Evaluation note Note Date & Type Note Facility Evaluation note No assessment information availa ble [facility] Work Phone: Reason for referral (narrative) Note Date & Type Note Facility Reason for referral (narrative) No reason for referral information available [facility] Work Phone: Chief Complaint and Reason for Visit Chief Complaint Admit Date POSSIBLE ENDO/COLONOSCOPY-Anemia Septemb er 2024 1:58pm Family History No Family History Records Found Relationship Condition Age at Onset Recorded Date/T raghavendra grandmother Diabetes mellitus Unknown father Cardiac disease Unknown daughter Disorder of thyroid Unknown Summary Purpose Advance Directives No Advanced Directives Records Found [...] June 22, 2024 End: June 22, 2024 Team Status: Active Member Role/Relationship Status Dates Dr. Efraín Leon MD Primary Care Provider Active Team Status: Inactive Member Role/Relationship Status Dates Dr. Efraín Leon MD Primary Care Provider Active Start: June 22, 2024 End: June 22, 2024 Dr. Efraín Leon MD Attending Provider Active Start: June 22, 2024 End: June 22, 2024 Dr. Efraín Leon MD Referring Provider Active Start: June 22, 2024 End: June 22, 2024 Team Status: Inactive Member Role/Relationship Status Dates Dr. Efraín Leon MD Primary Care Provider Active Start: October 05, 2024 End: October 05, 2024 Dr. Efraín Leon MD Attending Provider Active Start: October 05, 2024 End: October 05, 2024 Dr. Efraín Leon MD Referring Provider Active Start: October 05, 2024 End: October 05, 2024 Team Status: Inactive Member Role/Relationship Status Dates Dr. Efraín Leon MD Primary Care Provider Active Start: October 19, 2024 End: October 19, 2024 Dr. Efraín Leon MD Referring Provider Active Start: October 19, 2024 End: October 19, 2024 Dr. Mello Colon MD Attending Provider Active Start: October 19, 2024 End: October 19, 2024 Goals (unrecognized section and content) Goals may be documented in a n alternate sectionGoals may be documented in an alternate sectionGoals may be documented in an alternate section (unrecognized sect ion and content) No Status Records Found INFORMATION SOURCE (unrecogn ized section and content) DATE CREATED AUTHOR 10/31/2024 [facility] FOR RECORDS PERTAINING TO PATIENTS WHO ARE [...] BE BASED ON THE PRIMARY CLINICAL RECORDS. [employer] provides no warranty or guarantee of the accuracy or completeness of information in this document.
[2024-11-02 07:48] VITALS: BP 136/79; PULSE 78; RESP 14; TEMP 36.3; O2SAT 97; BMI 38.9
--- NOTE | 2024-11-02 07:59 | PCM.HP.BLA ---
History and Physical Date of Admission: 11/02/24 Intake Vital Signs 10/19/2513:14 Height 5 ft 9 in Weight: 266 lb BMI 39.2 BP 119/75 Blood Pressure Location Rt brachial Position Sitting Respiration 16 Intake Visit Reasons: POSSIBLE ENDO/COLONOSCOPY-Anemia Chief Complaint: anemia Television Announcer Required: No Is patient in pain?: No Allergies No Known Allergies Allergy (Unverified 10/19/24 14:15) Medications ?Medication ?Instructions ?Recorded ?Confirmed ?Type amlodipine 10 mg tablet 10 mg PO QDAY 10/19/24 10/19/24 History blood-glucose sensor (FreeStyle #1 ea 10/19/24 10/19/24 History Amparo 3 Plus Sensor device) empagliflozin 25 mg tablet 25 mg PO QDAY 10/19/24 10/19/24 History (Jardiance) gabapentin 100 mg capsule 100 mg PO QHS 10/19/24 10/19/24 History lisinopril 20 mg tablet 20 mg PO QDAY 10/19/24 10/19/24 History metformin 500 mg tablet 1,000 mg PO BID 10/19/24 10/19/24 History pantoprazole 40 mg tablet,delayed 40 mg PO QAM 10/19/24 10/19/24 History release Have you fallen in the past year?: No PFSH Medical History (Updated 10/19/24 @ 14:13 by Olivia Perez) Colon polyps Acid reflux Constipation Leg pain Anemia HTN (hypertension) High cholesterol Diabetes Surgical History (Updated 10/19/24 @ 14:13 by Olivia Perez) S/P prostatectomy S/P bilateral inguinal hernia repair Family History (Updated 10/19/24 @ 14:14 by Olivia Perez) Grandmother Diabetes[facility] Thyroid disorder Social History (Updated 10/19/24 @ 14:14 by Olivia Perez) Smoking Status: Former smoker alcohol intake: current alcohol intake frequency: 0-2 drinks per day HPI HPI HPI: Patient is a 74-year-old male who is here for anemia. He does not note any blood in his stool. He is not having any abdominal pain. He says that he did have a history of radiation for prostate cancer. Patient reports that his last colonoscopy and EGD were about 5 years ago. He denies family history of colon cancer. ROS General General: No weight change, appetite, fatigue, colon cancer, breast cancer or weakness HEENT HEENT: No difficulty swallowing, eye injury, eye surgery, swollen glands or hoarseness Endo Endocrine: Yes diabetes mellitus; No thyroid disease, thyroid cancer, Hair loss, heat intolerance or cold intolerance Skin Skin: No rash or changing moles Breast Breast: No left breast lump, right breast lump, nipple discharge, breast pain, abnormal mammogram, abnormal US or breast enlargement Musc Musculoskeletal: No back problems, arthritis, rheumatoid arthritis, gout or joint pain Cardio Cardiovascular: Yes high blood pressure; No murmur, pacemaker, heart disease, atrial fibrillation, heart attack, heart stent, palpitations, shortness of breath with exertion or chest pain Psych Psychiatric: No depression, anxiety or hearing voices Resp Respiratory: Yes shortness of breath, Yes sleep apnea, No cough, No COPD, No asthma, No emphysema and No wheezing Gastro Gastrointestinal: No abdominal pain, No nausea or vomiting, No diarrhea, Yes constipation, No blood in stool, Yes acid reflux, No hemorrhoids, No ulcers, No gallbladder problem and No black,tarry stools [place] Hematologic: No blood thinners, No blood disorders, No bleeding, Yes anemia and No blood clots Neuro Neurologic: No system reviewed and no additional complaints, except as documented, No as per HPI, No abnormal gait, No abnormal hearing, No abnormal movements, No abnormal speech, No behavioral changes, No burning sensations, No confusion, No convulsions, No disequilibrium, No dizziness, No localized weakness, No frequent falls, No headache(s), No lack of coordination, No loss of vision, No memory loss, Yes numbness, No other visual disturbances, No radicular pain, No restless legs, No sensory deficit, No syncope, Yes tingling, No tremor(s), No weakness and No other Exam Const General: cooperative Orientation: alert and oriented x3 HENMT Head: normal to inspection Neck Neck: normal visual inspection and full ROM Chest Chest palpation & inspection: normal inspection of the chest Resp Effort & Inspection: normal respiratory effort Auscultation: clear to auscultation bilaterally Cardio Rate: regular rate Rhythm: regular rhythm GI Inspection: non-distended Palpation: soft and nontender Skin General: no rashes or lesions noted Neuro General: patient alert and patient oriented x3 Extrem General: full ROM Psych Appearance: grossly normal Mental Status: mental status grossly normal Assessment and Plan Assessment and Plan (1) Anemia: Status: Acute Plan: The patient was sent here for his anemia. He had 2 fecal occult blood test that were negative. He is not having any abdominal pain or blood in the stool. I will plan on EGD and colonoscopy to evaluate for GI bleeding. I explained endoscopy in detail to the patient. I explained the risks including but not limited to stroke or heart attack with anesthesia, perforation of the GI tract, bleeding, infection. I explained that any of these could necessitate further emergency surgery. The patient understands and all questions were answered sufficiently. The patient wishes to proceed with procedure. Mello Colon MD Pager: [facility] [address] [place] [address], [address] [place] [address] Office: I have examined the patient and the H&P has been reviewed. There are no clinical changes since date of exam.
[2024-11-02] MEDS: Lactated Ringers 1,000 ML 15 ML IV (08:00)
--- NOTE | 2024-11-02 08:14 | PCM.PRE.AN2 ---
ASA Classification* ASA Classification ASA Classification: 2 Assessment & Plan Anesthesia* Anesthesia Assessment Anesthesia Assessment: Discussed sedation and/or anesthesia options, risks, benefits, and alternatives with patient/parents/legal guardian/POA. Questions invited. The patient/parents/legal guardian/POA seems to understand and agrees to proceed with anesthesia plan. Reviewed the physical assessment, medical history, allergy history and patient home medications list prior to surgery/procedure/anesthetic and documented any changes. Performed airway and anesthesia risk assessments. Anesthesia Type Anesthesia Type: MAC History Source History Obtained from:: Patient and Chart Anesthesia Focused Assessment* Temperature: 97.3 F Pulse Rate: 78 Blood Pressure: 136/79 Respiratory Rate: 14 Pulse Ox: 97 Oxygen Delivery Method: Room Air Airway Assessment Mouth opens: >3 cm Mallampati Score: IV Teeth Condition: Caps/Crowns (Patient has a couple crowns. they are tight.) Neck Range of motion (ROM): Limited ROM (Somewhat Decreased) Labs Anesthesia Preop lab: CBC WBC 6.4 K/mm3 (4.4-11.0) 10/05/24 15:11 10/05/24 RBC 4.83 M/mm3 (4.6-6.2) 10/05/24 15:11 10/05/24 Hgb 12.6 g/dL (13.0-16.5) L 10/05/24 15:11 10/05/24 Hct 40.9 % (40-54) 10/05/24 15:11 10/05/24 Plt Count 297 K/mm3 (150-450) 10/05/24 15:11 10/05/24 CHEMISTRY Potassium 4.2 mmol/L (3.3-5.1) 10/05/24 15:11 10/05/24 Sodium 137 mmol/L (133-145) 10/05/24 15:11 10/05/24 Magnesium 1.9 mg/dL (1.6-2.6) 09/03/23 10:31 09/03/23 BUN 22 mg/dL (4-19) H 10/05/24 15:11 10/05/24 Creatinine 0.92 mg/dL (0.70-1.20) 10/05/24 15:11 10/05/24 Glucose 162 mg/dL (70-99) H 10/05/24 15:11 10/05/24 COAG Pre-Assessment Diagnosis/Proposed Procedure Planned Operative Procedure(s): EGD/CSCOPE Anesthesia History Anesthesia History - director food and beverage: Anesthesia History - director food and beverage Hx Hospitalization No 10/29/24 11:12 Any Problems With Anesthesia No 10/29/24 11:12 Cholinesterase deficiency No 10/29/24 11:12 You/Your Family Experience No 10/29/24 11:12 fever (hyperthermia) with Relationship Recent Exposure to Contagious No 11/02/24 07:48 Disease Does patient have nerve No 10/29/24 11:12 stimulator Patient instructed to have device shut off --Does patient have Pacemaker No 11/02/24 07:48 or ICD? When Was Last Pacemaker Check QUESTION #4 FULL TEXT: You/Your Family Experience fever (hyperthermia) with Anesthesia Last Oral Intake Last Oral intake: Last Oral Intake NPO since 23:00 11/02/24 07:48 Meds taken in AM with sips of Yes 11/02/24 07:48 water? Meds patient instructed to take am of surgery Any additional information?: Yes Meds taken in AM with sips of water?: Yes Meds patient instructed to take am of surgery: Pantoprazole. PONV PONV - director food and beverage: PONV - director food and beverage Female No 10/29/24 11:12 HX of Motion Sickness No 10/29/24 11:12 HX of N/V After Surgery No 10/29/24 11:12 Non-Smoker Yes 10/29/24 11:12 Duration of Surgery greater No 10/29/24 11:12 than 60 minutes Number of Risk Factors 1 10/29/24 11:12 PONV Score Low Risk 10/29/24 11:12 Height & Weight Height & Weight: Anesthesia: Height & Weight Height 5 ft 9 in 11/02/24 07:48 Weight: 119.5 kg 11/02/24 07:48 Body Mass Index (BMI) 38.9 11/02/24 07:48 Respiratory Assessment Respiratory Assessment - director food and beverage: Respiratory Tract Infection Hx - director food and beverage Hx Respiratory Tract Infection No 10/29/24 11:12 STOP Sleep Apnea STOP Sleep Apnea - director food and beverage: STOP Sleep Apnea - director food and beverage Hx Hypertension Yes: CONTROLLED WITH MED 10/29/24 11:12 Hx Sleep Apnea Yes 10/29/24 11:12 CPAP Yes 10/29/24 11:12 BIPAP No 10/29/24 11:12 Do you snore loudly (louder than talking or can be heard Do you often feel tired/ fatigued/ sleepy during daytime? Has anyone observed you stop breathing during sleep? STOP Results Positive 10/29/24 11:12 QUESTION #5 FULL TEXT : Do you snore loudly (louder than talking or can be heard through closed doors)? 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 Specify any problems Hx of Preganancy in last 3 N/A 10/29/24 11:12 Months Nurse Filling Out Transfusion DSCHRIBER 10/29/24 11:12 & Questions: Date: 10/29/24 10/29/24 11:12 Time: 11:14 10/29/24 11:12 Patient unable to answer at this time (ie. confused, unrespo /Reproduction History /Reproductive History - director food and beverage: /Reproductive Hx- director food and beverage Hx Now No 10/29/24 11:12 Gestational Age (in weeks): EDC: Hx Hx Para Hx Section SAB No 10/29/24 11:12 Active Medications Active Medications: Current Medications Generic Name Dose Route Start Last Admin Trade Name Freq PRN Reason Stop Dose Admin Lactated Ringer's 1,000 mls @ 15 mls/hr 11/02/24 07:30 11/02/24 08:00 IV 15 mls/hr .Q48H TAMIA Administration PFSH Medical History Loss of hearing Wears glasses Alcohol use Cancer Neuropathy Anemia Syncope Dietary restriction History of hiatal hernia History of diverticulitis Gastric reflux Shortness of breath on exertion Former smoker CPAP (continuous positive airway pressure) dependence Leg cramps History of edema History of stress test HTN (hypertension) High cholesterol Diabetes Home Medications ?Medication ?Instructions ?Recorded ?Last Taken ?Type blood-glucose sensor (FreeStyle #1 ea 10/19/24 Unknown History Amparo 3 Plus Sensor device) empagliflozin 25 mg tablet 25 mg PO QDAY 10/19/24 10/26/24 History (Jardiance) gabapentin 100 mg capsule 100 mg PO QHS 10/19/24 Unknown History lisinopril 20 mg tablet 20 mg PO QDAY 10/19/24 Unknown History metformin 500 mg tablet 1,000 mg PO BID 10/19/24 Unknown History pantoprazole 40 mg tablet,delayed 40 mg PO QAM 10/19/24 11/02/24 06:40 History release multivitamin with minerals-folic 1 tab PO DAILY 10/29/24 Unknown History acid 80 mcg chewable tablet (Centrum Adult 50 Plus) Allergy/AdvReac Type Severity Reaction Status Date / Time No Known Allergies Allergy Verified 11/02/24 07:47 Family History Grandmother Diabetes Father Heart disease Daughter Thyroid disorder Surgical History History of esophagogastroduodenoscopy (EGD) Hx of colonoscopy S/P bilateral inguinal hernia repair Social History Smoking Status: Former smoker alcohol intake: current alcohol intake frequency: 0-2 drinks per day Review of Systems (Anesthesia) ROS Narrative System reviewed and no additional complaints, except as documented.
[2024-11-02 08:23] VITALS: BP 136/79; PULSE 78; RESP 14; TEMP 36.3; O2SAT 97
--- NOTE | 2024-11-02 09:03 | OP.EGD_ITS ---
Patient Name: Guerrero Aguilar Procedure Date: 11/02/2024 8:26 AM Date of : 1950 Age: 74 Procedure: Upper GI endoscopy Indications: Iron deficiency anemia Providers: Mello Colon MD Referring MD: Efraín Leon Medicines: Propofol per Anesthesia Patient Profile: This is a 74 year old male. Refer to note in patient chart for documentation of history and physical. Complications: No immediate complications. Procedure: Pre-Anesthesia Assessment: - Prior to the procedure, a History and Physical was performed, and patient medications and allergies were reviewed. The patient's tolerance of previous anesthesia was also reviewed. The risks and benefits of the procedure and the sedation options and risks were discussed with the patient. All questions were answered, and informed consent was obtained. Prior Anticoagulants: The patient has taken no anticoagulant or antiplatelet agents. After reviewing the risks and benefits, the patient was deemed in satisfactory condition to undergo the procedure. After obtaining informed consent, the endoscope was passed under direct vision. Throughout the procedure, the patient's blood pressure, pulse, and oxygen saturations were monitored continuously. The Colonoscope was introduced through the mouth, and advanced to the fourth part of duodenum. The upper GI endoscopy was accomplished without difficulty. The patient tolerated the procedure well. Scope In: 8:34:34 AM Scope Out: 8:37:15 AM Total Procedure Duration Time 0 hours 2 minutes 41 seconds Findings: The esophagus was normal. The stomach was normal. The examined duodenum was normal. Impression: - Normal esophagus. - Normal stomach. - Normal examined duodenum. - No specimens collected. Recommendation: - Discharge patient to home. - Resume previous diet. - Continue present medications. Procedure Code(s): --- Professional --- 14844, Esophagogastroduodenoscopy, flexible, transoral; diagnostic, including collection of specimen(s) by brushing or washing, when performed (separate procedure) Diagnosis Code(s): --- Professional --- D50.9, Iron deficiency anemia, unspecified CPT copyright 2021 [employer]. All rights reserved. The codes documented in this report are preliminary and upon emergency vehicle operator review may be revised to meet current compliance requirements. Mello Colon MD 11/02/2024 9:02:34 AM This report has been signed electronically. Number of Addenda: 0 Note Initiated On: 11/02/2024 8:26 AM
--- NOTE | 2024-11-02 09:03 | OP.PROVAT_ITS ---
11/02/2024 Efraín Leon [address] [place] [address] Re : Upper GI endoscopy procedure for Guerrero Aguilar Dear Dr. Leon This procedure was performed on Saturday, November 02, 2024. My impressions and recommendations are as follows: Impressions : - Normal esophagus. - Normal stomach. - Normal examined duodenum. - No specimens collected. Recommendations : - Discharge patient to home. - Resume previous diet. - Continue present medications. My findings are described in the full procedure note, which is enclosed. If I can be of further assistance, please feel free to contact me at Doctor phone number(s): , Work: . Sincerely, Mello Colon MD 11/02/2024 9:02:34 AM This report has been signed electronically.
[2024-11-02 09:05] VITALS: BP 136/79; BP 95/53; PULSE 63; RESP 16; TEMP 36.7; O2SAT 95
--- NOTE | 2024-11-02 09:05 | OP.PROVAT_ITS ---
11/02/2024 Efraín Leon [address] [place] [address] Re : Colonoscopy procedure for Guerrero Aguilar Dear Dr. Leon This procedure was performed on Saturday, November 02, 2024. My impressions and recommendations are as follows: Impressions : - The entire examined colon is normal on direct and retroflexion views. - No specimens collected. Recommendations : - Discharge patient to home. - Resume previous diet. - Continue present medications. - Repeat colonoscopy in 6 months because the examination was incomplete. - Return to GI office. My findings are described in the full procedure note, which is enclosed. If I can be of further assistance, please feel free to contact me at Doctor phone number(s): , Work: . Sincerely, Mello Colon MD 11/02/2024 9:05:17 AM This report has been signed electronically.
--- NOTE | 2024-11-02 09:05 | OP.COLON_ITS ---
Patient Name: Guerrero Aguilar Procedure Date: 11/02/2024 8:37 AM Date of : 1950 Age: 74 Procedure: Colonoscopy Indications: Iron deficiency anemia Providers: Mello Colon MD Referring MD: Efraín Leon Medicines: Propofol per Anesthesia Patient Profile: This is a 74 year old male. Refer to note in patient chart for documentation of history and physical. Last Colonoscopy: 10 years ago. Complications: No immediate complications. Procedure: Pre-Anesthesia Assessment: - Prior to the procedure, a History and Physical was performed, and patient medications and allergies were reviewed. The patient's tolerance of previous anesthesia was also reviewed. The risks and benefits of the procedure and the sedation options and risks were discussed with the patient. All questions were answered, and informed consent was obtained. Prior Anticoagulants: The patient has taken no anticoagulant or antiplatelet agents. After reviewing the risks and benefits, the patient was deemed in satisfactory condition to undergo the procedure. After I obtained informed consent, the scope was passed under direct vision. Throughout the procedure, the patient's blood pressure, pulse, and oxygen saturations were monitored continuously. The Colonoscope was introduced through the anus and advanced to the transverse colon. The colonoscopy was performed without difficulty. The colonoscopy was performed with moderate difficulty due to significant looping. The patient tolerated the procedure well. The quality of the bowel preparation was good. The rectum was photographed. Scope In: 8:38:34 AM Scope Withdrawal Time 0 hours 4 minutes 16 seconds Scope Out: 8:58:29 AM Total Procedure Duration Time 0 hours 19 minutes 55 seconds Findings: The entire examined colon appeared normal on direct and retroflexion views. Impression: - The entire examined colon is normal on direct and retroflexion views. - No specimens collected. Recommendation: - Discharge patient to home. - Resume previous diet. - Continue present medications. - Repeat colonoscopy in 6 months because the examination was incomplete. - Return to GI office. Procedure Code(s): --- Professional --- 11724, 53, Colonoscopy, flexible; diagnostic, including collection of specimen(s) by brushing or washing, when performed (separate procedure) Diagnosis Code(s): --- Professional --- D50.9, Iron deficiency anemia, unspecified CPT copyright 2021 [employer]. All rights reserved. The codes documented in this report are preliminary and upon plow mechanic review may be revised to meet current compliance requirements. Mello Colon MD 11/02/2024 9:05:17 AM This report has been signed electronically. Number of Addenda: 0 Note Initiated On: 11/02/2024 8:37 AM
[2024-11-02 09:10] VITALS: BP 107/71; BP 136/79; BP 95/53; PULSE 63; PULSE 64; RESP 16; TEMP 36.6; O2SAT 92; O2SAT 95
--- NOTE | 2024-11-02 09:10 | PCM.POST.ANE ---
Anesthesia: Postop Eval I Current Vital Signs Temperature: 98 F Pulse Rate: 64 Blood Pressure: 95/53 Respiratory Rate: 16 Pulse Ox: 95 Oxygen Delivery Method: Room Air Assessment Airway patent: Yes Spontaneous unlabored respirations: Yes Mental status: Awake and Calm nausea: No Vomiting: No Anesthesia Complication: No Fluid Hydration Crystalloid volume administer (ml): 400 Total IV fluid infused: 400 Progress Note Anesthesia document: Postop Eval 1 completed: Yes
[2024-11-02 09:16] VITALS: BP 112/78; BP 136/79; PULSE 64; RESP 16; TEMP 36.8; O2SAT 96
--- NOTE | 2024-11-02 09:24 | PCM.POSTANE2 ---
Anesthesia Postop Eval I Sum Postop Eval Completion status Anesthesia document: Postop Eval 1 completed: Yes Anesthesia Postop Eval I Summary Anesthesia Postop Eval I Summary: Anesthesia Postop Eval I: Assessment Summary Airway patent Yes 11/02/24 09:10 [email or web address] Spontaneous unlabored Yes 11/02/24 09:10 [email or web address] respirations Mental status Awake,Calm 11/02/24 09:10 [email or web address] nausea No 11/02/24 09:10 [email or web address] Vomiting No 11/02/24 09:10 [email or web address] Anesthesia Postop Eval I: Fluid Summary Crystalloid volume administer 400 11/02/24 09:10 [email or web address] (ml) Colloids volume administered ( ml) Blood Product volume administered (ml) Total IV fluid infused 400 11/02/24 09:10 [email or web address] Anesthesia Postop Eval I: Summary Notes Anesthesia Complication No 11/02/24 09:10 [email or web address] Anesthesia Complication Comment: Post-operative progress note Anesthesia: Postop Eval II Evaluation Mental status: Awake and Calm Pain Level: 0 nausea: No Vomiting: No Complications Anesthesia Complication: No
[2024-11-02 09:35] VITALS: BP 136/79
== END 2024-11-02 09:43 | disposition home or self-care (01) ==
LOC: EN 07:20 → AC 07:21
PROVIDERS: PCP Family Medicine; Referring Provider Family Medicine; Visit Provider Surgery
PROC: 0DJD8ZZ Inspection of Lower Intestinal Tract, Via Natural or Artificial Opening Endoscopic (ICD-10-PCS; CPT 45378; principal; 2024-11-02 08:25)
DX: D50.9 Iron deficiency anemia, unspecified (principal); E11.9 Type 2 diabetes mellitus without complications; Z87.891 Personal history of nicotine dependence; I10 Essential (primary) hypertension; E78.00 Pure hypercholesterolemia, unspecified; K21.9 Gastro-esophageal reflux disease without esophagitis; Z79.84 Long term (current) use of oral hypoglycemic drugs; Z79.899 Other long term (current) drug therapy; Z90.79 Acquired absence of other genital organ(s); Z85.46 Personal history of malignant neoplasm of prostate; Z92.3 Personal history of irradiation
CPT/HCPCS: 43235; 45378; J2405

== ENCOUNTER → 2024-11-17 | Outpatient (CLI) | payer MEDICARE, SELFPAY ==
[2024-11-17 16:15] LABS: AST(SGOT) 29 U/L (<=37); Alanine Aminotransfer ALT/SGPT 28 U/L (<=46); Albumin, Serum 4.0 g/dL (3.4-4.8); Alkaline Phosphatase 76 U/L (40-129); Anion Gap 14 (5-15); BUN 14 mg/dL (4-19); BUN/Creat Ratio 17.4 RATIO (10-20); Calcium,Total 9.5 mg/dL (7.6-11.0); Carbon Dioxide 21.9 mmol/L (21.0-32.0); Chloride 103 mmol/L (98-108); Cholesterol 191 mg/dL (<=200); Ferritin 9 ng/mL (37-417); Globulin 3.0 g/dL (2.2-4.2); Glucose 168 mg/dL (70-99); Low Density Lipoprotein Calc. 109 mg/dL; Potassium 3.6 mmol/L (3.3-5.1); Triglycerides 207 mg/dL; Very Low Density Lipoprotein 41 mg/dL (5-40); cholesterol:hdl ratio screen 4.67
[2024-11-17 16:24] LABS: Hematocrit 38.9 % (40-54); Hemoglobin 11.8 g/dL (13.0-16.5); Immature Granulocytes Count 0.010 X10^3/uL (0.0-0.0); Mean Corp Hgb Conc 30.3 g/dL (32-36); Mean Corpuscular Volume 82.8 fL (80-94); Mean Platelet Vol. 10.1 fl (6.2-12.0); NRBC Flagged by Analyzer 0 % (0-5); Platelet Count 294 K/mm3 (150-450); RBC Distribution Width CV 15.6 % (11.6-14.6); RBC Distribution Width SD 47.2 fl (35.1-43.9); Red Blood Count 4.70 M/mm3 (4.6-6.2); White Blood Count 5.7 K/mm3 (4.4-11.0)
[2024-11-17 19:47] LABS: Iron 48 ug/dL (65-175); Iron Binding Capacity,Total 357 ug/dL (250-450); Iron Binding Capacity,Unsat 309 ug/dL (228-428)
== END | disposition home or self-care (01) ==
LOC: MFPLAB 11:34
PROVIDERS: PCP Family Medicine; Visit Provider Family Medicine
DX: R79.0 Abnormal level of blood mineral (principal); E11.8 Type 2 diabetes mellitus with unspecified complications
CPT/HCPCS: 36415; 80053; 80061; 82728; 83036; 83540; 83550; 85025